=== PATIENT | female | born 1985 | race Caucasian/White ===

== ENCOUNTER 2021-11-11 08:12 | Emergency (ER) | payer BC, SELFPAY ==
--- NOTE | 2021-11-11 08:17 | ED_ITS ---
HPI - Back Pain/Injury General: Chief Complaint: Urogenital-Female Stated Complaint: low back pain Time Seen by Provider: 11/11/21 08:17 Source: patient Mode of arrival: ambulatory History of Present Illness: 36-year-old female complaining of left flank pain radiating down to the groin worse with urination. she not previously had this before no vomiting or diarrhea began yesterday with what felt like a low-grade fever that seems to have resolved. When she first arrived she has severe flank pain after she returns from CT is mostly resolved resolved on the left side. No known history of nephrolithiasis but states several family members have it. MD elicited complaint: back pain Onset (ago): day(s) (1) Timing: intermittent Severity: moderate Similar Symptoms Previously: No Quality: sharp Location: left flank Radiation: groin Exacerbating factors: other (Urination) Relieving factors: none Associated symptoms: Deny abdominal pain, arthralgias, chills, change in bowel habits, difficulty walking, dysuria, fatigue, fecal incontinence, fever(s), hematuria, myalgias, nausea, numbness, syncope, tingling/numbness/burning, urinary frequency, urinary urgency, vomiting or weakness Review of Systems Const: Denies: fever(s), chills, fatigue or malaise ENMT: Denies: throat pain, ear or mastoid pain, nasal discharge or nasal congestion Card: Denies: syncope Resp: Denies: dyspnea, productive cough or non-productive cough GI: Denies: abdominal pain, nausea, vomiting, fecal incontinence or change in bowel habits : Reports: flank pain and difficulty voiding; Denies: dysuria, urinary frequency, urinary urgency or hematuria Musc: Reports: back pain Skin/Breast: Denies: rash or pruritus Neuro: Denies: difficulty walking PFSH ED PFSH: Surgical History (Updated 11/11/21 @ 12:45 by Naresh Celis DO) H/O: hysterectomy Social History (Updated 11/11/21 @ 12:45 by Naresh Celis DO) Smoking and tobacco status: never smoked Alcohol intake: current Physical Exam Const: COMMON NORMALS: no acute distress GENERAL APPEARANCE: cooperative and comfortable ORIENTATION/CONSCIOUSNESS: Yes awake, Yes oriented to person, Yes oriented to place and Yes oriented to time HENMT: COMMON NORMALS: normocephalic and atraumatic HEAD & SCALP: normocephalic and atraumatic Resp: COMMON NORMALS: normal respiratory effort, No retractions, No use of accessory muscles and clear to auscultation bilaterally AUSCULTATION: clear to auscultation bilaterally Cardio: COMMON NORMALS: regular rate, regular rhythm and No murmurs present (Cardio) RATE: regular rate RHYTHM: regular rhythm GI: COMMON NORMALS: Soft to palpation and No hepatosplenomegaly present AUSCULTATION: Yes normoactive bowel sounds PALPATION: Yes Soft to palpation, No Tenderness to palpation present (GI), No Guarding due to palpation present (GI) and Yes No hepatosplenomegaly present : BLADDER/KIDNEY EXAM: Yes CVA tenderness Back/Pelvis: GENERAL BACK: Yes CVA tenderness CVA tenderness: left Extremity: COMMON NORMALS: normal to inspection, capillary refill normal, no clubbing, cyanosis or edema, no calf tenderness and no pedal edema Neuro: SENSORIUM/ORIENTATION: Yes oriented to person, Yes oriented to place and Yes oriented to time Skin: COMMON NORMALS: no rashes or lesions noted GENERAL SKIN EXAM: no rashes or lesions noted Course Vital Signs: Vital signs: Vital Signs Temperature 97.4 F L 11/11/21 08:19 Pulse Rate 65 11/11/21 10:54 Respiratory Rate 21 H 11/11/21 10:54 Blood Pressure 120/72 11/11/21 10:54 Pulse Oximetry 99 11/11/21 10:54 Oxygen Delivery Me thod 11/11/21 09:57 MDM - Back Pain/Injury Medical Decision Making Pain relieved after returning from CT. Renal stone in the bladder with hydronephrosis and hydroureter evidence that she had just passed the stone. We will have her strain her urine and set her up to see Dr. Nelson still in quite a bit of renal colic gave her some hydrocodone to use as needed. save stone for pathology follow-up with urology. Medical Records I reviewed the patient's medical records. Labs I reviewed the patient's lab results. : 11/11/21 08:44 11/11/21 08:44 Radiology Impressions Abdomen/Pelvis CT 11/11/21 09:56 IMPRESSION: 1. Very mild left hydronephrosis and hydroureter. No obstructive stone or lesion is seen. Nonobstructive right renal stone. 2. Stone in the dependent bladder that measures 4.1 mm; this may reflect a recently passed ureteral stone. 3. Probable simple cyst in the left ovary measuring 2.5 cm. Consider ultrasound if clinically warranted. 4. The bladder wall is thickened which may reflect underdistention. Correlate with urinalysis. 5. Hepatosplenomegaly. 6. Trace bilateral pleural effusions. 7. Occasional colonic diverticula. Laboratory Results WBC 5.3 10^3/uL (4.0-10.0) 11/11/21 08:44 RBC 5.16 10^6/uL (4.1-5.3) 11/11/21 08:44 Hgb 15.0 g/dL (11.5-15.3) 11/11/21 08:44 Hct 45.8 % (37.0-47.0) 11/11/21 08:44 MCV 88.8 fl (81-99) 11/11/21 08:44 MCH 29.1 pg (28.0-34.0) 11/11/21 08:44 MCHC 32.8 g/dL (30.0-36.0) 11/11/21 08:44 RDW 12.2 % (12.1-15.1) 11/11/21 08:44 Plt Count 304 10^3/cmm (130-400) 11/11/21 08:44 MPV 10.1 fL (7.4-10.4) 11/11/21 08:44 Neut % (Auto) 53.2 % 11/11/21 08:44 Lymph % (Auto) 37.1 % 11/11/21 08:44 [place] % (Auto) 7.8 % 11/11/21 08:44 Eos % (Auto) 1.1 % 11/11/21 08:44 Baso % (Auto) 0.6 % 11/11/21 08:44 Neut # (Auto) 2.82 10^3/uL (1.8-7.7) 11/11/21 08:44 Lymph # (Auto) 2.0 10^3/uL (0.8-4.8) 11/11/21 08:44 [place] # (Auto) 0.4 10^3/uL (0.2-0.9) 11/11/21 08:44 Eos # (Auto) 0.1 10^3/uL (0.0-0.8) 11/11/21 08:44 Baso # (Auto) 0.0 10^3/uL (0.0-0.1) 11/11/21 08:44 Nucleated RBC % (auto) 0 % 11/11/21 08:44 Nucleated RBCs # 0.0 /100WBC 11/11/21 08:44 Sodium 142 mmol/L (136-145) 11/11/21 08:44 Potassium 3.7 mmol/L (3.5-5.1) 11/11/21 08:44 Chloride 108 mmol/L (98-107) H 11/11/21 08:44 Carbon Dioxide 24 mmol/L (22-29) 11/11/21 08:44 Anion Gap 13.7 (5-19) 11/11/21 08:44 BUN 8 mg/dL (6-20) 11/11/21 08:44 Creatinine 0.9 mg/dL (0.5-0.9) 11/11/21 08:44 GFR Calculation 70.8 mL/min (90-130) L 11/11/21 08:44 Glucose 96 mg/dL (65-115) 11/11/21 08:44 Calculated Osmolality 292 mOsm/kg (285-295) 11/11/21 08:44 Calcium 8.9 mg/dL (8.5-10.5) 11/11/21 08:44 Urine Color Yellow (Yellow) 11/11/21 08:30 Urine Appearance Clear (CLEAR) 11/11/21 08:30 Urine pH 5 (5-7) 11/11/21 08:30 Ur Specific [place] 1.030 (1.005-1.030) 11/11/21 08:30 Urine Protein Neg (Negative) 11/11/21 08:30 Urine Glucose (UA) Norm (Normal) 11/11/21 08:30 Urine Ketones Negative (Negative) 11/11/21 08:30 Urine Blood 2+ (Negative) H 11/11/21 08:30 Urine Nitrate Negative (Negative) 11/11/21 08:30 Urine Bilirubin Neg (Negative) 11/11/21 08:30 Urine Urobilinogen Norm mg/dL (Negative) 11/11/21 08:30 Ur Leukocyte Esterase Negative (Negative) 11/11/21 08:30 Urine RBC 0-4 /hpf (0-2) H 11/11/21 08:30 Urine WBC None /hpf (0-5) 11/11/21 08:30 Ur Squamous Epith Cells 10-15 /hpf (0-5) H 11/11/21 08:30 Amorphous Sediment Not Reportable 11/11/21 08:30 Urine Bacteria 2+ /hpf (NONE) H 11/11/21 08:30 Discharge Plan Discharge Patient Disposition: Home Clinical Impression: Left nephrolithiasis Condition: Stable Prescriptions: New hydrocodone-acetaminophen 5-325 mg tablet 1 tab PO Q6H PRN (Reason: pain) Qty: 10 0RF Discharge Orders: Discharge ED (Routine); Ordered 11/11/21 Ordered By: Naresh Celis Discharge Diet: Usual diet Discharge Activity: Resume usual activity Patient Instructions: Opioid Safety Activity Restrictions/Additional Instructions: Strain urine to collect stone to submit for pathology. Case management will make arrangements for you to follow-up with urology and help you establish with PCP. Coding Level of Care Code ED Tele [employer]out [employer] Line Repairer for Seun Kemp
[2021-11-11 08:19] VITALS: BP 114/78; PULSE 84; RESP 18; TEMP 36.3; O2SAT 99; BMI 31.3
[2021-11-11] MEDS: sodium chloride 0.9% 1,000 ML 999 ML IV (08:40)
[2021-11-11 08:41] VITALS: RESP 12
[2021-11-11] MEDS: ondansetron 2 mg/ML SDV 2 mL 4 MG IVP (08:41)
[2021-11-11] MEDS: morphine 4 mg/mL SDV 1 mL IVP (08:41)
[2021-11-11 08:54] LABS: Bilirubin Urine Neg (Negative); Blood Urine 2+ (Negative); Glucose Urine UA Norm (Normal); Ketones Urine Negative (Negative); Nitrate Urine Negative (Negative); Protein Urine Neg (Negative); Urine Appearance Clear (CLEAR); Urine Color Yellow (Yellow); pH Urine 5 (5-7)
[2021-11-11 08:55] LABS: Add Urine Culture? No; Add Urine Microscopic? YES; Bacteria Urine 2+ /hpf; Leukocyte Esterase Urine Negative (Negative); RBC Urine 0-4 /hpf (0-2); Urobilinogen Urine Norm (Negative)
[2021-11-11 09:03] LABS: Basophils % 0.6 %; Eosinophils # 0.1 10^3/uL (0.0-0.8); Eosinophils % 1.1 %; Hematocrit 45.8 % (37.0-47.0); Lymphocytes % 37.1 %; Mean Corpuscular HGB Conc 32.8 g/dL (30.0-36.0); Mean Corpuscular Hemoglobin 29.1 pg (28.0-34.0); Mean Corpuscular Volume 88.8 fl (81-99); Mean Platelet Volume 10.1 fL (7.4-10.4); Monocytes # 0.4 10^3/uL (0.2-0.9); Monocytes % 7.8 %; Neutrophils # 2.82 10^3/uL (1.8-7.7); Neutrophils % 53.2 %; Nucleated Red Blood Cells % 0 %; Platelet Count 304 10^3/cmm (130-400); Red Blood Count 5.16 10^6/uL (4.1-5.3); Red Cell Distribution Width 12.2 % (12.1-15.1); White Blood Count 5.3 10^3/uL (4.0-10.0)
[2021-11-11 09:23] LABS: Anion Gap 13.7 (5-19); Blood Urea Nitrogen 8 mg/dL (6-20); Calcium 8.9 mg/dL (8.5-10.5); Carbon Dioxide 24 mmol/L (22-29); Chloride 108 mmol/L (98-107); Glomerular Filtration Rate 70.8 mL/min (90-130); Glucose 96 mg/dL (65-115); Osmolality Calculated 292 mOsm/kg (285-295); Potassium 3.7 mmol/L (3.5-5.1); Sodium 142 mmol/L (136-145)
--- NOTE | 2021-11-11 09:56 | CTR_ITS ---
PROCEDURE INFORMATION: Exam: CT Abdomen And Pelvis Without Contrast Exam date and time: 11/11/2021 10:04 AM Age: 36 years old Clinical indication: Left flank abdominal pain. Prior appendectomy and partial hysterectomy. TECHNIQUE: Imaging protocol: Computed tomography of the abdomen and pelvis without contrast. Radiation optimization: All CT scans at this facility use at least one of these dose optimization techniques: automated exposure control; mA and/or kV adjustment per patient size (includes targeted exams where dose is matched to clinical indication); or iterative reconstruction. COMPARISON: No relevant prior studies available. RADIATION DOSE METRICS: Total DLP (mGy-cm): 1005.63 FINDINGS: Pleural spaces: Trace bilateral pleural effusions. Trace pericardial fluid. No hiatal hernia. Liver: The liver is enlarged measuring 20.9 cm. Gallbladder and bile ducts: The gallbladder is unremarkable. Pancreas: The pancreas is unremarkable. Spleen: The spleen is mildly enlarged measuring 13.4 cm. Adrenal glands: The adrenal glands are unremarkable. Kidneys and ureters: Very mild left hydronephrosis and hydroureter. No obstructive stone or lesion is seen. Nonobstructive right renal stone. There is a stone in the bladder that measures 4.1 mm; this may reflect a recently passed ureteral stone. Stomach and bowel: The stomach and small bowel are unremarkable. Mild prominence of the wall of the ascending colon likely reflects underdistention. Occasional colonic diverticula without evidence of acute diverticulitis. Appendix: The appendix has been removed. Intraperitoneal space: No free intraperitoneal air is seen. Vasculature: No abdominal aortic aneurysm. Lymph nodes: No retroperitoneal lymphadenopathy. Urinary bladder: The bladder wall is thickened which may reflect underdistention. Correlate with urinalysis. Reproductive: Prior hysterectomy. Probable simple cyst in the left ovary measuring 2.5 cm. Bones/joints: No acute fracture is seen. Soft tissues: Small fat containing umbilical hernia. CT/CT kidney stone [id number] IMPRESSION: 1. Very mild left hydronephrosis and hydroureter. No obstructive stone or lesion is seen. Nonobstructive right renal stone. 2. Stone in the dependent bladder that measures 4.1 mm; this may reflect a recently passed ureteral stone. 3. Probable simple cyst in the left ovary measuring 2.5 cm. Consider ultrasound if clinically warranted. 4. The bladder wall is thickened which may reflect underdistention. Correlate with urinalysis. 5. Hepatosplenomegaly. 6. Trace bilateral pleural effusions. 7. Occasional colonic diverticula.
[2021-11-11 09:57] VITALS: BP 107/69; PULSE 87; RESP 14; O2SAT 98
[2021-11-11 10:54] VITALS: BP 120/72; PULSE 65; RESP 21; O2SAT 99
--- NOTE | 2021-11-13 11:51 | DCPLANNER ---
Addendum entered by Mellisa Oh 11/15/21 08:42: Patient had a follow up appointment scheduled for 11.15.21 with Lizett Dela Cruz at urology - patient did attend appointment. Original Note: radiology manager had message to schedule a follow up appointment for patient with urology. radiology manager sent patients information to the front office staff at urology. Patients information will be printed and reviewed. Clinic will call patient with appointment information.
== END 2021-11-11 11:06 | disposition home or self-care (01) ==
PROVIDERS: Emergency Provider Family Medicine
DX: N20.0 Calculus of kidney (principal)
CPT/HCPCS: 74176; 80048; 81001; 85025; 96361; 96374; 96375; 99285; J2270; J2405; J7030

== ENCOUNTER 2021-11-15 08:12 | Outpatient (CLI) | payer BC, SELFPAY ==
--- NOTE | 2021-11-15 08:20 | XR_ITS ---
WS: [id number] KUB, AP view, 11/15/2021 Clinical Data: Left Nephrolithiasis Comparison: None. Findings: No abnormal intraabdominal masses or calcifications are seen. There is no dilatated small bowel or ev idence of obstruction. Fecal material partly obscures both kidneys. XR/XR KUB [id number] Impression: Negative KUB.
== END 2021-11-15 08:13 | disposition home or self-care (01) ==
LOC: RAD 08:15
PROVIDERS: Visit Provider Nurse Practitioner Family
DX: N20.0 Calculus of kidney (principal)
CPT/HCPCS: 74018; 87086

== ENCOUNTER 2021-11-21 07:58 | Outpatient (CLI) | payer BC, SELFPAY ==
--- NOTE | 2021-11-21 08:26 | XR_ITS ---
WS: [id number] KUB, AP view, 11/21/2021 Clinical Data: STONES Comparison: KUB, 11/15/2021 Findings: No abnormal intraabdominal masses or calcifications are seen. There is no dilatated small bowel or ev idence of obstruction. Fecal material obscures detail over both kidneys. No calcifications are seen in the true pelvis. XR/XR KUB [id number] Impression: Negative KUB.
== END 2021-11-21 07:59 | disposition home or self-care (01) ==
PROVIDERS: Visit Provider Urology
DX: N20.1 Calculus of ureter (principal)
CPT/HCPCS: 74018

== ENCOUNTER → 2021-11-27 10:01 | Outpatient (BNVA) | payer BC, SELFPAY | PROVIDERS: Visit Provider Urology | DX: N20.1 Calculus of ureter (principal); N20.0 Calculus of kidney | CPT/HCPCS: 81003 ==

== ENCOUNTER → 2021-11-30 12:30 | Outpatient (BNVA) | payer BC, SELFPAY | PROVIDERS: Visit Provider Nurse Practitioner Family | DX: N20.0 Calculus of kidney (principal); N20.1 Calculus of ureter; R39.15 Urgency of urination | CPT/HCPCS: 81003 ==

== ENCOUNTER → 2021-12-12 12:46 | Outpatient (BNVA) | payer BC, SELFPAY | PROVIDERS: Visit Provider Urology | DX: N20.1 Calculus of ureter (principal) | CPT/HCPCS: 81003; 82365; 88300 ==

== ENCOUNTER 2022-04-26 08:06 | Emergency (ER) | payer BC, MEDICAID, SELFPAY ==
[2022-04-26] VITALS (7 sets, daily range): BP systolic 114–137; BP diastolic 76–88; PULSE 61–83; RESP 14–16; TEMP 36.8; O2SAT 95–100; BMI 35.4
--- NOTE | 2022-04-26 08:38 | XR_ITS ---
WS: [id number] Exam: XR KUB [id number] Date/Time of Exam: 04/26/2022 8:42 AM Reason For Exam: RLQ abd pain No bowel obstruction or free air. No sign of organ enlargement. Bony structures are intact. XR/XR KUB [id number] IMPRESSION: 1. No acute abdominal process.
[2022-04-26 09:00] LABS: Basophils % 0.3 %; Eosinophils % 0.4 %; Hematocrit 47.1 % (37.0-47.0); Hemoglobin 15.4 g/dL (11.5-15.3); Lymphocytes # 2.4 10^3/uL (0.8-4.8); Lymphocytes % 33.7 %; Mean Corpuscular HGB Conc 32.7 g/dL (30.0-36.0); Mean Corpuscular Hemoglobin 28.5 pg (28.0-34.0); Mean Corpuscular Volume 87.2 fl (81-99); Mean Platelet Volume 10.1 fL (7.4-10.4); Monocytes # 0.5 10^3/uL (0.2-0.9); Monocytes % 6.7 %; Neutrophils # 4.22 10^3/uL (1.8-7.7); Neutrophils % 58.8 %; Nucleated Red Blood Cells % 0 %; Platelet Count 270 10^3/cmm (130-400); Red Cell Distribution Width 12.4 % (12.1-15.1); White Blood Count 7.2 10^3/uL (4.0-10.0)
[2022-04-26 09:14] LABS: Alanine Aminotransferase 14 U/L (0-33); Albumin Level 4.2 g/dL (3.5-5.2); Alkaline Phosphatase 103 U/L (35-105); Aspartate Amino Transferase 15 U/L (0-32); Blood Urea Nitrogen 9 mg/dL (6-20); Calcium 9.1 mg/dL (8.5-10.5); Carbon Dioxide 23 mmol/L (22-29); Chloride 102 mmol/L (98-107); Globulin 2.6 g/dL (1.3-4.6); Glomerular Filtration Rate 94.7 mL/min (90-130); Glucose 98 mg/dL (65-115); Lipase 19 U/L (13-60); Osmolality Calculated 283 mOsm/kg (285-295); Sodium 137 mmol/L (136-145); Total Bilirubin 0.9 mg/dL (0.15-1.2); Total Protein 6.8 g/dL (6.6-8.7)
--- NOTE | 2022-04-26 09:24 | US_ITS ---
WS: [id number] TRANSABDOMINAL PELVIC AND TRANSVAGINAL PELVIC ULTRASOUND HISTORY: RLQ abdominal pain COMPARISON: None available. Absent uterus. There is no midline mass or fluid collection. Right ovary: 3.7 cm x 2.4 cm x 4.0 cm. Normal size ovary. Hyperechoic nodule within the RIGHT ovary m easures 2.1 x 2.1 x 2.1 cm. No increased vascularity. Most consistent with a hemorrhagic corpus luteu m or follicle. No solid mass. Left ovary: 4.1 cm x 3.9 cm x 2.8 cm. Normal size ovary. There is a minimally complex follicle within the ovary measuring 2.6 x 2.5 x 2.3 cm. Normal vascularity of the ovary. Free fluid: No free fluid. Ultrasound is directed to the area of pain which is in the RIGHT lower quadrant. There is a large silvia unt shadowing and bowel gas. No mass identified by ultrasound. US/US pelvis lmt w transvag IMPRESSION: 1. Status post hysterectomy. 2. No ovarian cysts or solid mass. 3. Small hemorrhagic follicle or corpus luteum RIGHT ovary and a follicle LEFT ovary.
[2022-04-26 11:12] LABS: Add Urine Microscopic? NO; Charge for UA Resulting for Rev
[2022-04-26 11:26] LABS: Bilirubin Urine Neg (Negative); Blood Urine Neg (Negative); Glucose Urine UA Norm (Normal); Ketones Urine 1+ (Negative); Leukocyte Esterase Urine Negative (Negative); Nitrate Urine Negative (Negative); Protein Urine Neg (Negative); Sulfosalicylic Acid Urine Negative (Negative); Urine Appearance Clear (CLEAR); Urine Color Yellow (Yellow); Urobilinogen Urine Neg (Negative); pH Urine 8 (5-7)
[2022-04-26] MEDS: sodium chloride 0.9% 1,000 ML 999 ML IV (11:34)
--- NOTE | 2022-04-26 12:28 | ED_ITS ---
HPI - Abdominal Pain General: Chief Complaint: Abdominal Pain Stated Complaint: fever for 3 weeks, abd pain Time Seen by Provider: 04/26/22 08:13 History of Present Illness: Patient is in today for right lower quadrant abdominal pain. She reports that this pain is really been ongoing for approximately 3 weeks. She states that she has been to her other provider who diagnosed her with IBS and started her on antibiotic. She states that she has been off of the antibiotic for approximately 1 week. She reports that her pain is no better and if anything is more constant. She states that she has not had any injury to her abdomen. She has noticed fever off and on at home even up to 102 ?F. She has had nausea and she has had intermittent diarrhea. She states that yesterday she had diarrhea stools for approximately 2-1/2 hours in which she did not leave the toilet. Patient is eating and drinking. She does have a history of an appendectomy and also a partial hysterectomy in which she still has both ovaries remaining. She also reports a history of ovarian cyst. Associated Symptoms: Reports chills, diarrhea, fever(s) and nausea; Denies dysuria and vomiting Review of Systems Const: Reports: fever(s) and chills Card: Denies: chest pain or palpitations Resp: Denies: dyspnea, productive cough or non-productive cough GI: Reports: abdominal pain, nausea and diarrhea; Denies: vomiting : Denies: flank pain, difficulty voiding, dysuria, urinary frequency, urinary urgency or urinary hesitancy PFSH ED PFSH: Medical History Colitis Hemorrhoids History of blood clots History of endometriosis IBS (irritable bowel syndrome) Surgical History H/O: hysterectomy History of abdominal surgery History of appendectomy History of 3 History of wisdom tooth extraction Family History Mother History of benign breast tumor Hypertension Acute rheumatoid arthritis Father Diabetes Hypertension High cholesterol Social History Smoking and tobacco status: never smoked Alcohol intake: current Alcohol intake frequency: holidays/special occasions only Adopted: No Lives independently: Yes Household members: spouse and children Marital status: Current occupational status: unemployed Female Reproductive History: Para: 3 Spontaneous abortions: No Physical Exam Const: COMMON NORMALS: patient oriented x3 and alert OTHER: Patient is in obvious pain Neck/C-Spine: COMMON NORMALS: no JVD Resp: COMMON NORMALS: normal respiratory effort, No use of accessory muscles and clear to auscultation bilaterally AUSCULTATION: clear to auscultation b ilaterally Cardio: COMMON NORMALS: no JVD, regular rate, regular rhythm, S1 normal heart sound present, S2 normal heart sound present and No murmurs present (Cardio) RATE: regular rate RHYTHM: regular rhythm HEART SOUNDS: S1 normal heart sound present and S2 normal heart sound present GI: COMMON NORMALS: Normal to inspection, nondistended, normoactive bowel sounds present and Soft to palpation PALPATION: Yes Soft to palpation, Yes Tenderness to palpation present (GI) Details: RLQ and Yes Guarding due to palpation present (GI) in the RLQ : COMMON NORMALS: Yes no CVA tenderness, Yes normal appearance of the vagina and Yes no masses BLADDER/KIDNEY EXAM: Yes no CVA tenderness BIMANUAL EXAM - ADNEXA, OTHER: Yes tender on the right Back/Pelvis: COMMON NORMALS: no CVA tenderness Neuro: COMMON NORMALS: patient oriented x3 SENSORIUM/ORIENTATION: Yes alert Course Vital Signs: Vital signs: Vital Signs Temperature 98.2 F 04/26/22 08:17 Pulse Rate 61 04/26/22 12:47 Respiratory Rate 14 04/26/22 12:47 Blood Pressure 114/76 04/26/22 12:47 Pulse Oximetry 99 04/26/22 12:47 Oxygen Delivery Me thod 04/26/22 08:17 MDM - Abdominal Pain Medical Decision Making Patient is in today for ongoing abdominal pain right lower quadrant. Patient has a history of an appendectomy and also partial hysterectomy. She also relates a history of ovarian cyst. Patient's physical exam is benign with the exception of significant right lower quadrant abdominal pain on palpation. Abdomen is soft, but tender right lower quadrant. There is some tenderness appreciated on bimanual vaginal exam on the right side ovary. White blood cell count is normal. Patient does have ketones in urine but no other indication of infection. Normal saline IV boluses given x1. Ultrasound pelvis limited ordered which does show small hemorrhagic follicle or corpus luteum right ovary and a follicle left ovary. Discussed results of ultrasound and labs with patient. Referral to case management to help coordinate referral to BUSINESS WRITER for the patient. Advised patient of conservative treatments at home. Follow-up with primary care provider as needed. Return to the ER for any new or worsening symptoms Lab Data 04/26/22 08:35 04/26/22 08:35 Labs/Radiology: Radiology Impressions KUB X-Ray 04/26/22 08:38 IMPRESSION: 1. No acute abdominal process. Pelvic/Transvag US 04/26/22 09:24 IMPRESSION: 1. Status post hysterectomy. 2. No ovarian cysts or solid mass. 3. Small hemorrhagic follicle or corpus luteum RIGHT ovary and a follicle LEFT ovary. Laboratory Results WBC 7.2 10^3/uL (4.0-10.0) 04/26/22 08:35 RBC 5.40 10^6/uL (4.1-5.3) H 04/26/22 08:35 Hgb 15.4 g/dL (11.5-15.3) H 04/26/22 08:35 Hct 47.1 % (37.0-47.0) H 04/26/22 08:35 MCV 87.2 fl (81-99) 04/26/22 08:35 MCH 28.5 pg (28.0-34.0) 04/26/22 08:35 MCHC 32.7 g/dL (30.0-36.0) 04/26/22 08:35 RDW 12.4 % (12.1-15.1) 04/26/22 08:35 Plt Count 270 10^3/cmm (130-400) 04/26/22 08:35 MPV 10.1 fL (7.4-10.4) 04/26/22 08:35 Neut % (Auto) 58.8 % 04/26/22 08:35 Lymph % (Auto) 33.7 % 04/26/22 08:35 [place] % (Auto) 6.7 % 04/26/22 08:35 Eos % (Auto) 0.4 % 04/26/22 08:35 Baso % (Auto) 0.3 % 04/26/22 08:35 Neut # (Auto) 4.22 10^3/uL (1.8-7.7) 04/26/22 08:35 Lymph # (Auto) 2.4 10^3/uL (0.8-4.8) 04/26/22 08:35 [place] # (Auto) 0.5 10^3/uL (0.2-0.9) 04/26/22 08:35 Eos # (Auto) 0.0 10^3/uL (0.0-0.8) 04/26/22 08:35 Baso # (Auto) 0.0 10^3/uL (0.0-0.1) 04/26/22 08:35 Nucleated RBC % (auto) 0 % 04/26/22 08:35 Nucleated RBCs # 0.0 /100WBC 04/26/22 08:35 Sodium 137 mmol/L (136-145) 04/26/22 08:35 Potassium 4.0 mmol/L (3.5-5.1) 04/26/22 08:35 Chloride 102 mmol/L (98-107) 04/26/22 08:35 Carbon Dioxide 23 mmol/L (22-29) 04/26/22 08:35 Anion Gap 16.0 (5-19) 04/26/22 08:35 BUN 9 mg/dL (6-20) 04/26/22 08:35 Creatinine 0.7 mg/dL (0.5-0.9) 04/26/22 08:35 GFR Calculation 94.7 mL/min (90-130) 04/26/22 08:35 Glucose 98 mg/dL (65-115) 04/26/22 08:35 Calculated Osmolality 283 mOsm/kg (285-295) L 04/26/22 08:35 Calcium 9.1 mg/dL (8.5-10.5) 04/26/22 08:35 Total Bilirubin 0.9 mg/dL (0.15-1.2) 04/26/22 08:35 AST 15 U/L (0-32) 04/26/22 08:35 ALT 14 U/L (0-33) 04/26/22 08:35 Alkaline Phosphatase 103 U/L (35-105) 04/26/22 08:35 Total Protein 6.8 g/dL (6.6-8.7) 04/26/22 08:35 Albumin 4.2 g/dL (3.5-5.2) 04/26/22 08:35 Globulin 2.6 g/dL (1.3-4.6) 04/26/22 08:35 Lipase 19 U/L (13-60) 04/26/22 08:35 Urine Color Yellow (Yellow) 04/26/22 11:03 Urine Appearance Clear (CLEAR) 04/26/22 11:03 Urine pH 8 (5-7) H 04/26/22 11:03 Ur Specific [place] 1.010 (1.005-1.030) 04/26/22 11:03 Urine Protein Neg (Negative) 04/26/22 11:03 Urine Glucose (UA) Norm (Normal) 04/26/22 11:03 Urine Ketones 1+ (Negative) H 04/26/22 11:03 Urine Blood Neg (Negative) 04/26/22 11:03 Urine Nitrate Negative (Negative) 04/26/22 11:03 Urine Bilirubin Neg (Negative) 04/26/22 11:03 Prot Sulfosalicylic Acd Negative (Negative) 04/26/22 11:03 Urine Urobilinogen Neg mg/dL (Negative) 04/26/22 11:03 Ur Leukocyte Esterase Negative (Negative) 04/26/22 11:03 Discharge Plan Discharge Patient Disposition: Home Clinical Impression: Hemorrhagic cyst of right ovary, Abdominal pain, right lower quadrant Condition: Stable Prescriptions: No Action Hair,Skin and Nails Tablet 1 tab PO BEDTIME ascorbate calcium (vitamin C) 500 mg tablet 500 mg PO BEDTIME melatonin 3 mg capsule 3 mg PO BEDTIME cyanocobalamin (vitamin B-12) 1,000 mcg capsule 1,000 mcg PO BEDTIME Probiotic 3 billion cell capsule 3,000 mmu cells PO DAILY Rx Instructions: administer with a meal dicyclomine 20 mg tablet 20 mg PO TID PRN (Reason: abdominal cramping) Qty: 30 0RF calcium polycarbophil [FiberCon] 625 mg tablet 1,250 mg PO BID Qty: 60 3RF Tylenol Ex Str Rapid Release 500 mg Tablet 1,000 mg PO Q6H PRN (Reason: Pain) Aleve 220 mg Tablet 220 mg PO Q12H PRN (Reason: Pain) Vitamin D3 25 mcg (1,000 unit) Tablet 25 mcg PO BEDTIME trazodone 50 mg tablet 50 mg PO BEDTIME Discharge Orders: Discharge ED (Routine); Ordered 04/26/22 Ordered By: Brenda Rodarte Referrals: Austin Azul DO [Primary Care Provider] - Discharge Diet: Usual diet Discharge Activity: Increase activity as tolerated Patient Instructions: Ovarian Cyst (ED) Activity Restrictions/Additional Instructions: Your ultrasound today showed ovarian cyst. 1 is considered hemorrhagic just meaning that it is bleeding a tiny bit. Your labs were unremarkable. I recommend conservative treatment for ovarian cyst including warm compresses and making sure that you are staying well-hydrated. Take Tylenol Motrin as needed for pain. Follow-up with BUSINESS WRITER. Return to the ER for new or worsening symptoms Coding Level of Care Code ED Bed And Breakfast Innkeeper for Seun Kemp
--- NOTE | 2022-04-27 08:52 | DCPLANNER ---
Addendum entered by Mellisa Oh 06/06/22 15:42: Patient had a follow up appointment scheduled with [facility] - patient did attend appointment Addendum entered by Mellisa Oh 05/01/22 15:12: Patient has a follow up appointment scheduled for Saturday, June 06, 2022 at 9:[address] jones at [facility]. Clinic will call patient with appointment information. Original Note: data architect manager had message to schedule a follow up appointment for patient with [facility]. data architect manager sent patients information to the front office staff at [facility]. Patients information will be printed and reviewed. Clinic will call patient with appointment information.
== END 2022-04-26 12:48 | disposition home or self-care (01) ==
PROVIDERS: Emergency Provider Nurse Practitioner Family; PCP Family Medicine
DX: N83.201 Unspecified ovarian cyst, right side (principal)
CPT/HCPCS: 74018; 76830; 76857; 80053; 81003; 83690; 85025; 96360; 99285; J7030

== ENCOUNTER → 2022-08-20 08:16 | Outpatient (BNVA) | payer MEDICAID, SELFPAY | PROVIDERS: PCP Family Medicine; Referring Provider Family Medicine; Visit Provider Specialist | DX: G43.709 Chronic migraine without aura, not intractable, without status migrainosus (principal) | CPT/HCPCS: 99204 ==

== ENCOUNTER 2022-08-28 18:08 | Observation (INO) | payer BC, MEDICAID, SELFPAY ==
[2022-08-27 09:04] VITALS: BMI 35.4
[2022-08-28] VITALS (16 sets, daily range): BP systolic 103–139; BP diastolic 66–86; PULSE 50–73; RESP 15–16; TEMP 36.4–36.9; O2SAT 88–99
[2022-08-28] MEDS: scopolamine 1.5 Patch 1 PATCH TRANSDERMA (11:12)
[2022-08-28] MEDS: CELEcoxib 200 mg Capsule 400 MG PO (11:13)
[2022-08-28] MEDS: phenazopyridine 100 mg Tablet 200 MG PO ×2 (11:13→21:32)
[2022-08-28] MEDS: gabapentin 300 mg Capsule PO (11:13)
[2022-08-28] MEDS: acetaminophen 1,000 MG/100 ML PIGGYBACK 400 MG IV (11:18)
[2022-08-28] MEDS: sodium chloride 0.9% 1,000 ML 30 ML IV (11:30)
--- NOTE | 2022-08-28 13:39 | ANES.PREANE2 ---
Pre-Anesthetic Assessment Height/Weight: Height 1.75 m Weight 108.862 kg Temp Pulse Resp BP Pulse Ox O2 Del Method 97.7 F 71 16 116/80 99 Room Air 08/28/22 11:00 08/28/22 11:00 08/28/22 11:00 08/28/22 11:00 08/28/22 11:00 08/28/22 11:00 Preop Diagnosis: endometriosis, pelvic pain, previous Operation Date: 08/28/22 12:35 Proposed Procedures p Laparoscopic right salpingo-oophorectomy, left salpingectomy [id number], 67194,R10.31,Z87.42(Right) - Arlette Staton MD s Salpingectomy(Left) - Arlette Staton MD s Mini Laparotomy(Not Applicable) - Arlette Staton MD Familial anesthetic complications: None Was Beta Savita taken within 24 hours: N/A Was Clonidine taken within 24 hours: N/A Last intake: Intake Last Liquid Date 08/27/22 Last Liquid Time 23:00 Last Solid Date 08/27/22 Last Solid Time 22:30 Social No alcohol and No tobacco Exam alert, oriented x 3, clear to auscultation bilaterally and regular rate & rhythm Airway Mallampati: Class III Dentition: full GI IBS Anesthetic Plan ASA status: 2 Anesthesia: General Risk of > 500 ml blood loss (7ml/kg in children): No Medications/Allergies Home Medications Medication Instructions Recorded Confirmed Last Taken Type cyanocobalamin (vitamin B-12) 1,000 mcg PO BEDTIME 11/15/21 08/28/22 08/26/22 History 1,000 mcg capsule lactobacillus combination no.4 3 3,000 mmu cells PO DAILY 11/15/21 08/28/22 08/26/22 History billion cell capsule (Probiotic) melatonin 3 mg capsule 3 mg PO BEDTIME 11/15/21 08/28/22 08/26/22 History multivitamin with minerals 1 tab PO BEDTIME 11/15/21 08/28/22 08/26/22 History (Hair,Skin and Nails tablet) calcium polycarbophil 625 mg 1,250 mg PO BID 04/16/22 08/28/22 2 Weeks Ago Rx tablet (FiberCon) constipation/diarrhea #60 tabs ~08/14/22 cholecalciferol (vitamin D3) 25 25 mcg PO BEDTIME 04/26/22 08/28/22 08/27/22 History mcg (1,000 unit) tablet (Vitamin D3) onabotulinumtoxinA 100 unit 155 unit IM Q90D 90 days #2 ea 08/20/22 08/28/22 Unknown Rx solution for injection (Botox) Allergies Allergy/AdvReac Type Severity Reaction Status Date / Time latex Allergy ALGY-Rash Verified 08/28/22 11:00 Current Medications Generic Name Dose Route Start Last Admin Trade Name Freq PRN Reason Stop Dose Admin Sodium Chloride 1,000 mls @ 30 mls/hr 08/28/22 10:45 08/28/22 11:30 Sodium Chloride 0.9% IV 08/29/22 10:44 30 mls/hr .Q24H OLIVIA Administration PFSH Anesthesia Medical History Colitis Hemorrhoids History of blood clots History of endometriosis IBS (irritable bowel syndrome) Surgical History H/O: hysterectomy History of abdominal surgery History of appendectomy History of 3 History of wisdom tooth extraction Family History Mother Hypertension Father Diabetes Hypertension Hypercholesteremia Denies family history of Colon cancer Ovarian cancer Heart disease Breast cancer Uterine cancer Thyroid disease Stroke Female Reproductive History Para: 3 Spontaneous abortions: No Data Anesthesia Cardiac Studies: No Data to Display
--- NOTE | 2022-08-28 14:29 | W.PM.OPSUD ---
Surgery/Procedure H&P Update DATE OF PROCEDURE: August 28, 2022 DATE H&P PERFORMED: 08/23/22 H&P UPDATE INFORMATION: I have reviewed H&P completed within last 30 days, I have examined patient prior to procedure and No changes to prior documentation PREOP DIAGNOSIS: endometriosis, pelvic pain, previous PLANNED PROCEDURE: Operation Date: 08/28/22 12:35 Proposed Procedures p Laparoscopic right salpingo-oophorectomy, left salpingectomy [id number], 72660,R10.31,Z87.42(Right) - Arlette Staton MD s Salpingectomy(Left) - Arlette Staton MD s Mini Laparotomy(Not Applicable) - Arlette Staton MD Related Problem List Diagnoses (1) Endometriosis: (2) Pelvic pain:
[2022-08-28] MEDS: ceFAZolin 2,000 MG in sodium chloride 0.9% (plus) 50 ML 100 MG IV ×2 (15:09→20:17)
--- NOTE | 2022-08-28 16:47 | PM.OP ---
Operative Report Date of procedure: August 28, 2022 Pre-op diagnosis: Preop Diagnosis endometriosis, pelvic pain, previous Post-op diagnosis: other (Enlarged right ovary with multiple cysts. ) Post-op findings: same. No left tube or ovary was able to be palpated or seen. No right fallopian tube. Procedure done: Right oophorectomy, previous scar revision Specimens removed/disposition: right ovary and skin revision to pathology Surgeon: Arlette Staton Anesthesia: General Estimated blood loss (mL): 5 IV fluids (mL): 1,000 Urine output (mL): 50 Complications: none Condition: stable Disposition: PACU Procedure: The patient was taken to the operating room where general anesthesia was administered and found to be adequate. She was prepped and draped in the normal sterile fashion in the dorsal supine position. A strickland catheter was placed. A Pfannenstiel skin incision was made around the previous incisions and the skin was removed. It was sent to pathology. The incision was then carried down to the underlying layer of fascia. The fascia was nicked in the midline and extended laterally with the Villarreal scissors. The fascia was then tented up and the rectus muscles dissected off sharply. The rectus muscles were in the midline and the abdomen entered bluntly with the digit. This peritoneal incision was extended superiorly and inferiorly with good visualization of the bladder. The O'Toni-O'Lei retractor was placed and the bowel packed away. The right ovary was grasped with a [place] clamp and elevated. I had previously consented the patient for a bilateral salpingectomy, however when I elevated the ovary there was no tube present. Using a Gill clamp the infundibulopelvic ligament was clamped just inferior to the ovary. Using Villarreal scissors it was removed and a Mitchel stitch was placed. There was excellent hemostasis post removal of the ovary. Attention was then turned to the left ovary I was unable to find it I palpated and I looked and I could not find the ovary. Since her right ovary did not have a tube present and I could not find the left ovary, I stopped looking, assuming that the left fallopian tube had previously been removed during the hysterectomy. The O'Toni-O'Lei retractor as well as the packing was removed. The peritoneum was closed with 3-0 Monocryl in a running fashion. The fascia was closed with 0 Vicryl in a running fashion with 2 separate sutures overlapping in the midline. The skin was closed with O-Vicryl in subcuticular stitch. 10 ml of 1/2 percent bupivicaine was injected around the incision. The patient tolerated the procedure well. Sponge lap and needle counts were correct x2. She was taken to the recovery room in stable condition.
[2022-08-28] MEDS: fentaNYL 50 mcg/mL INJ 2mL IVP ×4 (16:55→23:46)
--- NOTE | 2022-08-28 17:05 | PM.DCS ---
Discharge Providers Date of Admission: 08/28/22 Date of Discharge: August 29, 2022 Attending Provider at Admission: Dr. jones Attending Provider at Discharge: Arlette Jones MD Primary Care Provider: Austin Azul DO Diagnoses at Discharge Discharge Diagnosis (1) Endometriosis: Status: Acute (2) Pelvic pain: Status: Acute Reason for Visit Reason for Visit: [id number] R10.31 Z87.42 Hospital Course Hospital Course The patient was admitted for surgery. She had pain control problems postoperatively. She was admitted for observation and pain management. By the next morning, she was doing well and pain was well controlled. She was ready for discharge. Physical Exam Narrative: The patient is doing much better this morning. She is having gas pain, but doing well. Const: COMMON NORMALS: no acute distress, patient oriented x3, no limitations, alert and well nourished GENERAL APPEARANCE: cooperative, comfortable, well kempt and well developed ORIENTATION/CONSCIOUSNESS: Yes awake, Yes oriented to person, Yes oriented to place and Yes oriented to time Resp: COMMON NORMALS: normal respiratory effort EFFORT & INSPECTION: Yes able to speak in complete sentences GI: COMMON NORMALS: Soft to palpation and non-tender PALPATION: Yes Soft to palpation Extremity: COMMON NORMALS: no calf tenderness Neuro: COMMON NORMALS: patient oriented x3 SENSORIUM/ORIENTATION: Yes alert, Yes oriented to person, Yes oriented to place and Yes oriented to time Psych: APPEARANCE: Yes well kempt Urinary Catheter Management: [place]: Cath Placed During This Visit: yes, but has since been removed by the nurse Urinary Catheter Date of Insertion: 08/28/22 Urinary Catheter Time of Insertion: 15:00 Date Urinary Catheter Removed: 08/28/22 Time Urinary Catheter Discontinued: 16:48 Discharge Data Studies Completed and Pending Pending at discharge Category Date Time Status Urine Culture Routine Lab 08/28/22 15:15 Received Vitals Last Vital Signs Temp 97.6 F 08/28/22 16:50 Pulse 56 L 08/28/22 16:55 Resp 16 08/28/22 16:55 BP 139/84 08/28/22 16:55 Pulse Ox 97 08/28/22 16:55 O2 Del Method Simple Mask 08/28/22 16:55 O2 Flow Rate 6 08/28/22 16:55 Discharge Plan Discharge Patient Disposition: Home Condition: Stable Prescriptions: New ibuprofen 800 mg tablet 800 mg PO Q8H Qty: 30 0RF Colace 100 mg capsule 100 mg PO BID Qty: 60 0RF oxycodone-acetaminophen 5-325 mg tablet 1 tab PO Q4H PRN (Reason: pain) Qty: 30 0RF Continued Botox 100 unit recon soln 155 unit IM Q90D 90 Days Qty: 2 0RF Hair,Skin and Nails Tablet 1 tab PO BEDTIME melatonin 3 mg capsule 3 mg PO BEDTIME cyanocobalamin (vitamin B-12) 1,000 mcg capsule 1,000 mcg PO BEDTIME Probiotic 3 billion cell capsule 3,000 mmu cells PO DAILY Rx Instructions: administer with a meal calcium polycarbophil [FiberCon] 625 mg tablet 1,250 mg PO BID Qty: 60 3RF cholecalciferol (vitamin D3) [Vitamin D3] 25 mcg (1,000 unit) Tablet 25 mcg PO BEDTIME Discharge Orders: Discharge Order (Routine); Ordered 08/29/22 Ordered By: Arlette Jones Referrals: Arlette Jones MD [Physician] - 09/05/22 10:00 am (Your 1 week post op appointment with Dr. Jones is September 05 at 10:00am. ) Patient Instructions: Hydrocodone/Acetaminophen (By mouth), Salpingo-Oophorectomy (GEN), OB Abdominal Surgery - [facility], OB Discharge Report, OB Food/Drug Interaction Guide, Opioid Safety Discharge Attestations Time Spent in Discharge Care*: less than 30 min Quality Metrics Clinical Quality Measures [ No reported AMI, CVA or VTE this stay] Coding Level of Care Code Acute Code for Chg Fwd Diagnoses Endometriosis N80.9 Pelvic pain R10.2
[2022-08-28] MEDS: ondansetron 2 mg/ML SDV 2 mL 4 MG IVP ×2 (17:34→22:25)
[2022-08-28] MEDS: HYDROmorphone 1 mg/mL INJ 1 mL 0.5 MG IVP (17:39)
[2022-08-28] MEDS: ketorolac 30 mg/mL INJ IVP (18:17)
[2022-08-28] MEDS: HYDROcodone-acetaminophen 5-325 mg Tablet 2 TAB PO (18:18)
--- NOTE | 2022-08-28 19:00 | ANE.PACU2 ---
Inpatient post-anesthesia follow up: Airway intact: Yes Vital signs: Temperature 98.1 F Pulse Rate 67 Respiratory Rate 18 Blood Pressure 110/76 Pulse Oximetry 96 Oxygen Delivery Me thod Room Air Oxygen Flow Rate 1 Fraction of Inspir ed Oxygen Hydration adequate: Yes Nausea and vomiting: No Pain level: 1 Mental status: Baseline
[2022-08-28] MEDS: dextrose 5%-lactated ringers 1,000 ML 125 ML IV (20:15)
[2022-08-28] MEDS: HYDROmorphone 1 mg/mL INJ 1 mL 1.5 MG IVP (20:15)
[2022-08-28] MEDS: simethicone 80 mg Chew PO (20:16)
[2022-08-28] MEDS: oxyCODONE-APAP 5-325 mg Tablet PO (21:55)
[2022-08-29] VITALS (9 sets, daily range): BP systolic 94–110; BP diastolic 49–76; PULSE 63–67; RESP 16–18; TEMP 36.6–36.9; O2SAT 92–96
[2022-08-29] MEDS: ketorolac 30 mg/mL INJ IVP (00:20)
[2022-08-29] MEDS: sodium chloride 0.9% 500 ML 999 ML IV ×2 (01:30→02:11)
[2022-08-29] MEDS: ceFAZolin 2,000 MG in sodium chloride 0.9% (plus) 50 ML 100 MG IV (02:51)
[2022-08-29] MEDS: oxyCODONE-APAP 5-325 mg Tablet PO (04:22)
[2022-08-29 06:37] LABS: Hematocrit 36.1 % (37.0-47.0); Hemoglobin 11.8 g/dL (11.5-15.3); Mean Corpuscular HGB Conc 32.7 g/dL (30.0-36.0); Mean Corpuscular Hemoglobin 28.8 pg (28.0-34.0); Platelet Count 237 10^3/cmm (130-400); Red Cell Distribution Width 12.4 % (12.1-15.1); White Blood Count 9.8 10^3/uL (4.0-10.0)
[2022-08-29] MEDS: ibuprofen 800 mg tablet PO (09:22)
[2022-08-29] MEDS: oxyCODONE-APAP 5-325 mg Tablet 1 TAB PO ×2 (09:22→12:48)
[2022-08-29] MEDS: docusate sodium 100 mg Capsule PO (09:22)
== END 2022-08-29 13:00 | disposition home or self-care (01) ==
LOC: OBGYN 18:08
PROVIDERS: Admitting Provider Obstetrics & Gynecology; PCP Family Medicine; Visit Provider Obstetrics & Gynecology
PROC: (CPT 11406; 2022-08-28 12:35)
PROC: (CPT 58720; 2022-08-28 12:35)
DX: N80.9 Endometriosis, unspecified (principal); L90.5 Scar conditions and fibrosis of skin; N83.291 Other ovarian cyst, right side
CPT/HCPCS: 11406; 58940; 36415; 51702; 85027; 87086; 88304; 88305; 96374; 96376; G0378; J0131; J0690; J1100; J1170; J1885; J2405; J2704; J2710; J3010; J3490; J7030; J7040; J7121

== ENCOUNTER 2022-09-04 10:27 | Emergency (ER) | payer BC, MEDICAID, SELFPAY ==
[2022-09-04 10:37] VITALS: BP 119/85; PULSE 76; RESP 16; TEMP 36.9; O2SAT 98; BMI 36.1
--- NOTE | 2022-09-04 10:56 | CTR_ITS ---
PROCEDURE INFORMATION: Exam: CT Abdomen And Pelvis With Contrast Exam date and time: 09/04/2022 11:10 AM Age: 36 years old Clinical indication: Abdominal pain; Acute; Prior surgery; Surgery date: 3-7 days post-operative; Surgery type: Post op RT ooph 1 week ago; Additional info: Post surgical pain and swelling TECHNIQUE: Imaging protocol: Computed tomography of the abdomen and pelvis with contrast. Radiation optimization: All CT scans at this facility use at least one of these dose optimization techniques: automated exposure control; mA and/or kV adjustment per patient size (includes targeted exams where dose is matched to clinical indication); or iterative reconstruction. Contrast material: OMNI 350; Contrast volume: 100 ml; Contrast route: INTRAVENOUS (IV); REPORTING DATA: Count of CT and Cardiac NM exams in prior 12 months: This patient has received [address] and 0 known cardiac nuclear medicine studies in the 12 months prior to the current study. COMPARISON: CT kidney stone [id number] 11/11/2021 10:04 AM RADIATION DOSE METRICS: Total DLP (mGy-cm): 1031.33 FINDINGS: Liver: Normal. No mass. Gallbladder and bile ducts: Normal. No calcified stones. No ductal dilation. Pancreas: Normal. No ductal dilation. Spleen: Normal. No splenomegaly. Adrenal glands: Normal. No mass. Kidneys and ureters: Normal. No hydronephrosis. Stomach and bowel: Colonic diverticulosis without evidence of diverticulitis. No bowel obstruction. Moderate colonic stool burden. Appendix: Appendectomy. Intraperitoneal space: Unremarkable. No free air. No significant fluid collection. Vasculature: Left-sided IVC. Lymph nodes: Unremarkable. No enlarged lymph nodes. Urinary bladder: Unremarkable as visualized. Reproductive: Left ovarian cyst measures 3 cm. Hysterectomy and right oophorectomy. Bones/joints: Unremarkable. No acute fracture. Soft tissues: A few locules of gas in the right inguinal region and just subjacent to the ventral abdominal wall are likely postsurgical. There is some ill-defined edema within the lower ventral abdominal wall. Partially loculated fluid is seen within the subcutaneous fat overlying the lower abdominal wall measuring 1.4 x 11[address]/CT abdomen pelvis w con* [id number] IMPRESSION: 1. Partially loculated fluid is seen within the subcutaneous fat overlying the lower abdominal wall as measured above. 2. There is also a small amount of ill-defined edema within the lower ventral abdominal wall.
[2022-09-04] MEDS: sodium chloride 0.9% 1,000 ML 999 ML IV (11:02)
[2022-09-04] MEDS: morphine 4 mg/mL SDV 1 mL IVP (11:03)
[2022-09-04] MEDS: ondansetron 2 mg/ML SDV 2 mL 4 MG IVP (11:03)
[2022-09-04 11:06] LABS: Basophils % 0.3 %; Eosinophils # 0.1 10^3/uL (0.0-0.8); Eosinophils % 1.5 %; Hematocrit 44.1 % (37.0-47.0); Hemoglobin 14.7 g/dL (11.5-15.3); Lymphocytes # 2.1 10^3/uL (0.8-4.8); Lymphocytes % 30.6 %; Mean Corpuscular HGB Conc 33.3 g/dL (30.0-36.0); Mean Corpuscular Hemoglobin 28.4 pg (28.0-34.0); Mean Corpuscular Volume 85.1 fl (81-99); Mean Platelet Volume 9.4 fL (7.4-10.4); Monocytes # 0.4 10^3/uL (0.2-0.9); Monocytes % 6.4 %; Neutrophils % 60.9 %; Nucleated Red Blood Cells % 0 %; Platelet Count 316 10^3/cmm (130-400); Red Blood Count 5.18 10^6/uL (4.1-5.3); White Blood Count 6.9 10^3/uL (4.0-10.0)
[2022-09-04] MEDS: iohexol 350 mg/mL 500 mL Btl (per mL) IV (11:14)
[2022-09-04 11:25] LABS: Alanine Aminotransferase 12 U/L (0-33); Albumin Level 4.1 g/dL (3.5-5.2); Alkaline Phosphatase 111 U/L (35-105); Anion Gap 14.3 (5-19); Aspartate Amino Transferase 15 U/L (0-32); Blood Urea Nitrogen 11 mg/dL (6-20); Calcium 8.9 mg/dL (8.5-10.5); Carbon Dioxide 25 mmol/L (22-29); Chloride 103 mmol/L (98-107); Globulin 2.8 g/dL (1.3-4.6); Glomerular Filtration Rate 94.7 mL/min (90-130); Glucose 105 mg/dL (65-115); Osmolality Calculated 286 mOsm/kg (285-295); Potassium 4.3 mmol/L (3.5-5.1); Sodium 138 mmol/L (136-145); Total Bilirubin 0.5 mg/dL (0.15-1.2); Total Protein 6.9 g/dL (6.6-8.7)
[2022-09-04 11:48] VITALS: BP 105/66; PULSE 67; RESP 16; O2SAT 96
[2022-09-04 11:58] LABS: Bilirubin Urine Neg (Negative); Blood Urine Neg (Negative); Glucose Urine UA Norm (Normal); Ketones Urine Negative (Negative); Nitrate Urine Negative (Negative); Protein Urine Neg (Negative); Specific Gravity, Urine 1.005 (1.005-1.030); Urine Appearance SL Hazy (CLEAR); Urine Color Light yellow (Yellow); pH Urine 7 (5-7)
[2022-09-04 11:59] LABS: Add Urine Microscopic? YES; Leukocyte Esterase Urine Negative (Negative); Urobilinogen Urine Norm (Negative)
[2022-09-04 12:03] LABS: Add Urine Culture? No; Bacteria Urine 1+ /hpf; Mucus Urine 1+ /hpf; RBC Urine 0-4 /hpf (0-2); Squamous Epithelial Cell Urine 0-4 /hpf (0-5); WBC Urine 0-4 /hpf (0-5)
--- NOTE | 2022-09-04 12:39 | ED_ITS ---
HPI - Abdominal Pain General: Chief Complaint: Abdominal Pain Stated Complaint: post surgery, lower abd pain Time Seen by Provider: 09/04/22 10:29 History of Present Illness: 36 yo female patient presents to ER with post op incisional pain and swelling. Pt had her right ovary removed last saturday via incision. Woke up today with pain, swelling and drainage. Pt denies any fever. Pt denies any n/v/d. Associated Symptoms: Denies change in bowel habits, chills, constipation, GI cramping, diarrhea, dysuria, fever(s), hematuria, hematemesis, nausea, syncope and vomiting Review of Systems Const: Denies: fever(s), chills, body aches, change in appetite, change in weight, fatigue, malaise or diaphoresis Eyes: Denies: change in vision, blurry vision, blind spots, photophobia, eye discomfort, eye discharge, eye redness, floaters or seeing flashes ENMT: Denies: throat pain, uvular edema, enlarged tonsils, odynophagia, hoarseness, mouth pain, swelling of lips/tongue, oral sores, bleeding gums, de ntal pain, dry mouth, ear or mastoid pain, ear discharge, change in hearing, tinnitus, disequilibrium, nasal discharge, nasal congestion, post nasal drip or sinus pain Card: Denies: chest pain, palpitations, irregular heart rhythm, edema, swelling of feet/ankles, lightheadedness, syncope, pre-syncope, dyspnea on exertion, orthopnea, leg pain with exertion or acrocyanosis Resp: Denies: dyspnea, productive cough, non-productive cough, wheezing, stridor, pain on inspiration, change in phlegm color, hemoptysis or chest congestion GI: Denies: abdominal pain, nausea, vomiting, hematemesis, dysphagia, diarrhea , constipation, GI cramping, change in bowel habits or rectal pain : Denies: flank pain, difficulty voiding, dysuria, urinary frequency, urinary urgency, urinary hesitancy or hematuria Musc: Denies: neck pain, back pain, extremity pain, extremity swelling, joint pain, joint swelling, joint redness, joint warmth or deformity Skin/Breast: Denies: rash, pruritus, sores, new lesions, changes in skin color or dry skin Neuro: Denies: headache(s), numbness in extremities, weakness in extremities, sensory changes, lack of coordination, difficulty walking, frequent falls, dizziness, vertigo, confusion, behavioral changes, Slurred speech present, difficulty communicating thoughts or seizure-like activity Psych: Denies: anxiety, depression, suicidal ideation or homicidal ideation Endo: Denies: polyuria, polydipsia, tired all the time, cold intolerance, excessive sweating, flushing, hot flashes or heat intolerance Mainro/Lymph: Denies: easy bruising, easy bleeding, petechiae, purpura, enlarged lymph nodes or tender lymph nodes All/Imm: Denies: urticaria, throat swelling, tongue swelling, facial swelling, acute wheezing or itchy eyes PFSH ED PFSH: Medical History Hemorrhoids History of blood clots History of endometriosis IBS (irritable bowel syndrome) Pelvic pain Renal calculus Surgical History H/O: hysterectomy History of abdominal surgery History of appendectomy History of 3 History of wisdom tooth extraction Family History Mother Hypertension Father Diabetes Hypertension Hypercholesteremia Denies family history of Colon cancer Ovarian cancer Heart disease Breast cancer Uterine cancer Thyroid disease Stroke Female Reproductive History: Para: 3 Spontaneous abortions: No Physical Exam Const: COMMON NORMALS: no acute distress, average body habitus, patient oriented x3, no limitations, healthy appearing, alert and well nourished HENMT: THROAT: no uvular edema Neck/C-Spine: COMMON NORMALS: full ROM, no lymphadenopathy, supple, no meninge al signs, no JVD, Thyroid normal and No carotid bruits THYROID: Thyroid n ormal Chest: COMMONS NORMALS: normal inspection of the chest and normal palpation of entire chest wall Resp: COMMON NORMALS: normal respiratory effort, No retractions, No use of accessory muscles, clear to auscultation bilaterally and percussion normal AUSCULTATION: clear to auscultation bilaterally PERCUSSION: percussion normal Cardio: COMMON NORMALS: no JVD, regular rate, regular rhythm, S1 normal heart sound present, S2 normal heart sound present, No gallops present (Cardio), No clicks present (Cardio), No murmurs present (Cardio), No rub (Cardio) and Peripheral pulses 2+ throughout RATE: regular rate RHYTHM: regular rhythm HEART SOUNDS: S1 normal heart sound present and S2 normal heart sound present PERIPHERAL PULSES: Peripheral pulses 2+ throughout GI: COMMON NORMALS: Soft to palpation, non-tender, No hepatosplenomegaly present, no masses and no bruits PALPATION: Yes Soft to palpation and Yes No hepatosplenomegaly present : COMMON NORMALS: Yes no CVA tenderness and Yes normal external appearance (erythema and swelling with seroussang drainage) BLADDER/KIDNEY EXAM: Yes no CVA tenderness Back/Pelvis: COMMON NORMALS: no CVA tenderness Neuro: COMMON NORMALS: patient oriented x3, CN's II-XII intact bilaterally, moves all extremities, no focal motor deficits and no sensory deficits noted SENSORIUM/ORIENTATION: Yes alert MENINGEAL SIGNS: Yes no meningeal signs Skin: COMMON NORMALS: no rashes or lesions noted and no wounds (erythema and swelling noted to incision of the abd) GENERAL SKIN EXAM: no rashes or lesions noted Course Vital Signs: Vital signs: Vital Signs Temperature 98.4 F 09/04/22 10:37 Pulse Rate 67 09/04/22 11:48 Respiratory Rate 16 09/04/22 11:48 Blood Pressure 105/66 09/04/22 11:48 Pulse Oximetry 96 09/04/22 11:48 Oxygen Delivery Me thod Room Air 09/04/22 11:48 MDM - Abdominal Pain Medical Decision Making Patient is well appearing non toxic and in no acute distress. 36 yo female patient presents to ER with post op incisional pain and swelling. Pt had her right ovary removed last saturday via incision. Woke up today with pain, swelling and drainage. Pt denies any fever. Pt denies any n/v/d. Labs do not reveal any concerning findings. CT reveals a fluid pocket at the incision site that appears to be seroma. Pt is actively draining. Incision remains intact and well approximated with the exception of .5 cm area that is daining on right side. Dressings were changed and I will start on antibiotics at this time. Pt has follow up with GYM tomorrow. Differential Diagnosis Likely abdominal pain and small bowel obstruction Medical Records abscess, seroma, uti Lab Data 09/04/22 11:00 09/04/22 11:00 Labs/Radiology: Radiology Impressions Abdomen/Pelvis CT 09/04/22 10:56 IMPRESSION: 1. Partially loculated fluid is seen within the subcutaneous fat overlying the lower abdominal wall as measured above. 2. There is also a small amount of ill-defined edema within the lower ventral abdominal wall. Laboratory Results WBC 6.9 10^3/uL (4.0-10.0) 09/04/22 11:00 RBC 5.18 10^6/uL (4.1-5.3) 09/04/22 11:00 Hgb 14.7 g/dL (11.5-15.3) 09/04/22 11:00 Hct 44.1 % (37.0-47.0) 09/04/22 11:00 MCV 85.1 fl (81-99) 09/04/22 11:00 MCH 28.4 pg (28.0-34.0) 09/04/22 11:00 MCHC 33.3 g/dL (30.0-36.0) 09/04/22 11:00 RDW 12.0 % (12.1-15.1) L 09/04/22 11:00 Plt Count 316 10^3/cmm (130-400) 09/04/22 11:00 MPV 9.4 fL (7.4-10.4) 09/04/22 11:00 Neut % (Auto) 60.9 % 09/04/22 11:00 Lymph % (Auto) 30.6 % 09/04/22 11:00 [place] % (Auto) 6.4 % 09/04/22 11:00 Eos % (Auto) 1.5 % 09/04/22 11:00 Baso % (Auto) 0.3 % 09/04/22 11:00 Neut # (Auto) 4.20 10^3/uL (1.8-7.7) 09/04/22 11:00 Lymph # (Auto) 2.1 10^3/uL (0.8-4.8) 09/04/22 11:00 [place] # (Auto) 0.4 10^3/uL (0.2-0.9) 09/04/22 11:00 Eos # (Auto) 0.1 10^3/uL (0.0-0.8) 09/04/22 11:00 Baso # (Auto) 0.0 10^3/uL (0.0-0.1) 09/04/22 11:00 Nucleated RBC % (auto) 0 % 09/04/22 11:00 Nucleated RBCs # 0.0 /100WBC 09/04/22 11:00 Sodium 138 mmol/L (136-145) 09/04/22 11:00 Potassium 4.3 mmol/L (3.5-5.1) 09/04/22 11:00 Chloride 103 mmol/L (98-107) 09/04/22 11:00 Carbon Dioxide 25 mmol/L (22-29) 09/04/22 11:00 Anion Gap 14.3 (5-19) 09/04/22 11:00 BUN 11 mg/dL (6-20) 09/04/22 11:00 Creatinine 0.7 mg/dL (0.5-0.9) 09/04/22 11:00 GFR Calculation 94.7 mL/min (90-130) 09/04/22 11:00 Glucose 105 mg/dL (65-115) 09/04/22 11:00 Calculated Osmolality 286 mOsm/kg (285-295) 09/04/22 11:00 Calcium 8.9 mg/dL (8.5-10.5) 09/04/22 11:00 Total Bilirubin 0.5 mg/dL (0.15-1.2) 09/04/22 11:00 AST 15 U/L (0-32) 09/04/22 11:00 ALT 12 U/L (0-33) 09/04/22 11:00 Alkaline Phosphatase 111 U/L (35-105) H 09/04/22 11:00 Total Protein 6.9 g/dL (6.6-8.7) 09/04/22 11:00 Albumin 4.1 g/dL (3.5-5.2) 09/04/22 11:00 Globulin 2.8 g/dL (1.3-4.6) 09/04/22 11:00 Urine Color Light yellow (Yellow) 09/04/22 11:34 Urine Appearance Sl hazy (CLEAR) A 09/04/22 11:34 Urine pH 7 (5-7) 09/04/22 11:34 Ur Specific [place] 1.005 (1.005-1.030) 09/04/22 11:34 Urine Protein Neg (Negative) 09/04/22 11:34 Urine Glucose (UA) Norm (Normal) 09/04/22 11:34 Urine Ketones Negative (Negative) 09/04/22 11:34 Urine Blood Neg (Negative) 09/04/22 11:34 Urine Nitrate Negative (Negative) 09/04/22 11:34 Urine Bilirubin Neg (Negative) 09/04/22 11:34 Urine Urobilinogen Norm mg/dL (Negative) 09/04/22 11:34 Ur Leukocyte Esterase Negative (Negative) 09/04/22 11:34 Urine RBC 0-4 /hpf (0-2) H 09/04/22 11:34 Urine WBC 0-4 /hpf (0-5) H 09/04/22 11:34 Ur Squamous Epith Cells 0-4 /hpf (0-5) H 09/04/22 11:34 Amorphous Sediment Not Reportable 09/04/22 11:34 Urine Bacteria 1+ /hpf (NONE) H 09/04/22 11:34 Urine Mucus 1+ /hpf 09/04/22 11:34 Discharge Plan Discharge Patient Disposition: Home Clinical Impression: Seroma Condition: Stable Prescriptions: New Cleocin HCl 300 mg capsule 300 mg PO QID 7 Days Qty: 28 0RF No Action Botox 100 unit recon soln 155 unit IM Q90D 90 Days Qty: 2 0RF Hair,Skin and Nails Tablet 1 tab PO BEDTIME melatonin 3 mg capsule 3 mg PO BEDTIME cyanocobalamin (vitamin B-12) 1,000 mcg capsule 1,000 mcg PO BEDTIME Probiotic 3 billion cell capsule 3,000 mmu cells PO DAILY Rx Instructions: administer with a meal calcium polycarbophil [FiberCon] 625 mg tablet 1,250 mg PO BID Qty: 60 3RF cholecalciferol (vitamin D3) [Vitamin D3] 25 mcg (1,000 unit) Tablet 25 mcg PO BEDTIME ibuprofen 800 mg tablet 800 mg PO Q8H Qty: 30 0RF Colace 100 mg capsule 100 mg PO BID Qty: 60 0RF oxycodone-acetaminophen 5-325 mg tablet 1 tab PO Q4H PRN (Reason: pain) Qty: 30 0RF Discharge Orders: Discharge ED (Routine); Ordered 09/04/22 Ordered By: Sarah Beth Rankin Referrals: Austin Azul, [Primary Care Provider] - Discharge Diet: Advance as tolerated Discharge Activity: Increase activity as tolerated Patient Instructions: Opioid Safety, Pain Management Activity Restrictions/Additional Instructions: Please keep your follow up with [facility] tomorrow as scheduled Take meds as prescribed Continue to follow post surgery activity restriction as advised Return to ER with any worsening of symptoms or concerns as discussed Coding Level of Care Code ED Dental Laboratory Technician Apprentice for Seun Kemp
[2022-09-04] MEDS: fluconazole 100 mg Tablet 150 MG PO (13:25)
== END 2022-09-04 13:30 | disposition home or self-care (01) ==
PROVIDERS: Emergency Provider Registered Nurse; PCP Family Medicine
DX: O90.2 Hematoma of obstetric wound (principal)
CPT/HCPCS: 36415; 74177; 80053; 81001; 85025; 96361; 96374; 96375; 99285; J2270; J2405; J7030; Q9967

== ENCOUNTER 2022-09-20 19:06 | Emergency (ER) | payer BC, MEDICAID, SELFPAY ==
[2022-09-20 19:15] VITALS: BMI 36.1
[2022-09-20 19:17] VITALS: BP 113/73; PULSE 81; RESP 16; TEMP 37.2; O2SAT 99
--- NOTE | 2022-09-20 19:27 | ED_ITS ---
HPI - Skin/Abscess/Foreign Bdy General: Chief complaint: Skin/Abscess/Foreign Body Stated complaint: drainage and redness on site Time Seen by Provider: 09/20/22 19:27 History of Present Illness: 36-year-old female comes in today for complaints of right lower abdominal pain along her surgical incision line. Patient had a with removal of right ovary and debridement of scar tissue from prior C-sections. Patient reports 2 weeks ago she had been seen and was diagnosed with a seroma and placed on antibiotics at that time. Patient completed the antibiotics but over the last 2 to 3 days she has had some increased discomfort to the right lower quadrant. Patient does report occasional fever. Patient appears nontoxic. Patient appears in mild to moderate pain. Review of Systems General: Reports: 10 or more systems reviewed and unremarkable except in HPI and below Skin/Breast: Reports: other (Tenderness of right surgical incision of ) [facility] ED PFSH: Medical History Hemorrhoids History of blood clots History of endometriosis IBS (irritable bowel syndrome) Pelvic pain Renal calculus Surgical History H/O: hysterectomy History of abdominal surgery History of appendectomy History of 3 History of wisdom tooth extraction Family History Mother Hypertension Father Diabetes Hypertension Hypercholesteremia Denies family history of Colon cancer Ovarian cancer Heart disease Breast cancer Uterine cancer Thyroid disease Stroke Female Reproductive History: Para: 3 Spontaneous abortions: No Physical Exam Const: COMMON NORMALS: alert HENMT: COMMON NORMALS: normocephalic HEAD & SCALP: normocephalic Neck/C-Spine: COMMON NORMALS: full ROM Resp: COMMON NORMALS: normal respiratory effort Cardio: COMMON NORMALS: regular rate RATE: regular rate GI: COMMON NORMALS: Soft to palpation AUSCULTATION: Yes normoactive bowel sounds PALPATION: Yes Soft to palpation : OTHER: section online banking specialist on the right aspect of the line, there is a visible suture, no palpable mass or significant redness is noted. Neuro: SENSORIUM/ORIENTATION: Yes alert Skin: NARRATIVE SKIN EXAM: Healing section line with minimal redness and no obvious drainage Course Vital Signs: Vital signs: Vital Signs Temperature 98.9 F 09/20/22 19:17 Pulse Rate 81 09/20/22 19:17 Respiratory Rate 16 09/20/22 19:17 Blood Pressure 113/73 09/20/22 19:17 Pulse Oximetry 99 09/20/22 19:17 Oxygen Delivery Me thod Room Air 09/20/22 19:17 MDM - Skin/Abscess/Foreign Bdy Medicial Decision Making Patient comes in today for persistent tenderness to the right aspect of the C- section surgical line. Evaluation of the incision line noticed no significant redness. There was an exposed suture along the incision line. Differential diagnosis includes abscess, wound infection, seroma. Ultrasound of the area noted persistent seroma. No signs of severe infection was noted. Laboratory values were unremarkable. We will continue patient on antibiotic 1 tablet twice a day for the next 7 days and recommend referral back to surgeon. Patient reported understanding and agreed to plan to follow-up with Dr. Staton. Lab Data 09/20/22 19:09/20/22 19: Laboratory Results WBC 6.8 10^3/uL (4.0-10.0) 09/20/22 19: RBC 5.06 10^6/uL (4.1-5.3) 09/20/22: Hgb 14.5 g/dL (11.5-15.3) 09/20/22 19: Hct 43.6 % (37.0-47.0) 09/20/22: MCV 86.2 fl (81-99) 09/20/22: MCH 28.7 pg (28.0-34.0) 09/20/22 19: MCHC 33.3 g/dL (30.0-36.0) 09/20/22: RDW 12.4 % (12.1-15.1) 09/20/22: Plt Count 298 10^3/cmm (130-400) 09/20/22 19: MPV 9.8 fL (7.4-10.4) 09/20/22 19: Neut % (Auto) 55.7 % 09/20/22 19: Lymph % (Auto) 37.1 % 09/20/22 19:27 [place] % (Auto) 5.5 % 09/20/22 19: Eos % (Auto) 1.2 % 09/20/22 19: Baso % (Auto) 0.4 % 09/20/22 19: Neut # (Auto) 3.76 10^3/uL (1.8-7.7) 09/20/22 19: Lymph # (Auto) 2.5 10^3/uL (0.8-4.8) 09/20/22 19: [place] # (Auto) 0.4 10^3/uL (0.2-0.9) 09/20/22 19: Eos # (Auto) 0.1 10^3/uL (0.0-0.8) 09/20/22: Baso # (Auto) 0.0 10^3/uL (0.0-0.1) 09/20/22 19: Nucleated RBC % (auto) 0 % 09/20/22 19: Nucleated RBCs # 0.0 /100WBC 09/20/22 19: Sodium 139 mmol/L (136-145) 09/20/22 19: Potassium 3.9 mmol/L (3.5-5.1) 09/20/22 19: Chloride 105 mmol/L (98-107) 09/20/22 19: Carbon Dioxide 22 mmol/L (22-29) 09/20/22 19: Anion Gap 15.9 (5-19) 09/20/22 19: BUN 9 mg/dL (6-20) 09/20/22 19: Creatinine 0.7 mg/dL (0.5-0.9) 09/20/22 19: GFR Calculation 94.7 mL/min (90-130) 09/20/22 19: Glucose 110 mg/dL (65-115) 09/20/22 19: Calculated Osmolality 287 mOsm/kg (285-295) 09/20/22 19: Calcium 8.9 mg/dL (8.5-10.5) 09/20/22 19: Total Bilirubin 0.6 mg/dL (0.15-1.2) 09/20/22 19: AST 13 U/L (0-32) 09/20/22 19:27 ALT 14 U/L (0-33) 09/20/22 19:27 Alkaline Phosphatase 103 U/L (35-105) 09/20/22 19:27 Total Protein 6.9 g/dL (6.6-8.7) 09/20/22 19:27 Albumin 4.2 g/dL (3.5-5.2) 09/20/22 19:27 Globulin 2.7 g/dL (1.3-4.6) 09/20/22 19:27 Discharge Plan Discharge Patient Disposition: Home Clinical Impression: Seroma after procedure Condition: Stable Prescriptions: New amoxicillin-pot clavulanate 875-125 mg tablet 1 tab PO BID Qty: 14 0RF No Action Botox 100 unit recon soln 155 unit IM Q90D 90 Days Qty: 2 0RF Hair,Skin and Nails Tablet 1 tab PO BEDTIME melatonin 3 mg capsule 3 mg PO BEDTIME cyanocobalamin (vitamin B-12) 1,000 mcg capsule 1,000 mcg PO BEDTIME Probiotic 3 billion cell capsule 3,000 mmu cells PO DAILY Rx Instructions: administer with a meal calcium polycarbophil [FiberCon] 625 mg tablet 1,250 mg PO BID Qty: 60 3RF cholecalciferol (vitamin D3) [Vitamin D3] 25 mcg (1,000 unit) Tablet 25 mcg PO BEDTIME Colace 100 mg capsule 100 mg PO BID Qty: 60 0RF Discharge Orders: Discharge ED (Routine); Ordered 09/20/22 Ordered By: Pablo Arnold Referrals: Austin Azul DO [Primary Care Provider] - Discharge Diet: Usual diet Discharge Activity: Increase activity as tolerated Patient Instructions: Seroma (DC) Activity Restrictions/Additional Instructions: Take medication as directed. Follow-up with surgeon for further evaluation and treatment. Return to ED for new concerns or worsening symptoms. Coding Level of Care Code ED Refrigerating Technician for Seun Kemp
[2022-09-20 19:38] LABS: Basophils % 0.4 %; Eosinophils # 0.1 10^3/uL (0.0-0.8); Eosinophils % 1.2 %; Hematocrit 43.6 % (37.0-47.0); Hemoglobin 14.5 g/dL (11.5-15.3); Lymphocytes # 2.5 10^3/uL (0.8-4.8); Lymphocytes % 37.1 %; Mean Corpuscular HGB Conc 33.3 g/dL (30.0-36.0); Mean Corpuscular Hemoglobin 28.7 pg (28.0-34.0); Mean Corpuscular Volume 86.2 fl (81-99); Mean Platelet Volume 9.8 fL (7.4-10.4); Monocytes # 0.4 10^3/uL (0.2-0.9); Monocytes % 5.5 %; Neutrophils # 3.76 10^3/uL (1.8-7.7); Neutrophils % 55.7 %; Nucleated Red Blood Cells % 0 %; Platelet Count 298 10^3/cmm (130-400); Red Blood Count 5.06 10^6/uL (4.1-5.3); Red Cell Distribution Width 12.4 % (12.1-15.1); White Blood Count 6.8 10^3/uL (4.0-10.0)
--- NOTE | 2022-09-20 19:41 | USR_ITS ---
PROCEDURE INFORMATION: Exam: US Right Non-Vascular Joint or Other Extremity Structure Exam date and time: 09/20/2022 9:00 PM Age: 36 years old Clinical indication: Thigh; Prior surgery; Surgery date: <1 month; Surgery type: Patient has had 3 c-sections which left her with a painful scar. In addition, she needed her right ovary removed. To address these needs, she underwent a right oophrectomy and a cicatrix resection on 08/28/2022. Pathology reports of right ovary and csection scar remnant were benign. Post-operative, she began to experience rlq pain, and was seen in our er on 09/04/2022, at which time she underwent a CT exam of the area. CT report concludes: partially loculated fluid within the subcutaneous fat = 1.4 x 11.8 x 2.3cm. also noted at CT were prior appendectomy. The patient states that this was in 2007. She also has a history of multiple endometrial ablations and finally a hysterectomy in 2017. ; Additional info: Right lower abd, wound, R/O seroma or abscess TECHNIQUE: Imaging protocol: Right US joint or other nonvascular extremity structure or structures. Real-time ultrasound with image documentation. Limited study. Exam focused on the lower extremity in the region of clinical interest. COMPARISON: US pelvis lmt w transvag 04/26/2022 9:54 AM FINDINGS: Soft tissues: Localized thin walled fluid collection measuring 1.4 x 1.8 x 2.3 cm in the abdominal wall subcutaneous fat, suggestive of a seroma without extension into the abdomen, underlying infection of the fluid is not excluded by ultrasound alone. US/US soft tissue/extremity [id number] IMPRESSION: Localized thin walled fluid collection measuring 1.4 x 1.8 x 2.3 cm in the abdominal wall subcutaneous fat, suggestive of a seroma without extension into the abdomen, underlying infection of the fluid is not excluded by ultrasound alone.
[2022-09-20 19:57] LABS: Alanine Aminotransferase 14 U/L (0-33); Albumin Level 4.2 g/dL (3.5-5.2); Alkaline Phosphatase 103 U/L (35-105); Anion Gap 15.9 (5-19); Aspartate Amino Transferase 13 U/L (0-32); Blood Urea Nitrogen 9 mg/dL (6-20); Calcium 8.9 mg/dL (8.5-10.5); Carbon Dioxide 22 mmol/L (22-29); Chloride 105 mmol/L (98-107); Globulin 2.7 g/dL (1.3-4.6); Glomerular Filtration Rate 94.7 mL/min (90-130); Glucose 110 mg/dL (65-115); Osmolality Calculated 287 mOsm/kg (285-295); Potassium 3.9 mmol/L (3.5-5.1); Sodium 139 mmol/L (136-145); Total Bilirubin 0.6 mg/dL (0.15-1.2); Total Protein 6.9 g/dL (6.6-8.7)
[2022-09-20] MEDS: amoxicillin-clav 875-125 mg Tablet 1 TAB PO (21:23)
[2022-09-20 21:24] VITALS: BP 134/86; PULSE 74; O2SAT 95
== END 2022-09-20 21:25 | disposition home or self-care (01) ==
PROVIDERS: Emergency Medicine; Emergency Provider Nurse Practitioner Family; PCP Family Medicine
DX: L76.34 Postprocedural seroma of skin and subcutaneous tissue following other procedure (principal)
CPT/HCPCS: 36415; 76882; 80053; 85025; 99284

== ENCOUNTER 2022-12-31 08:30 | Emergency (ER) | payer BC, MEDICAID, SELFPAY ==
--- NOTE | 2022-12-31 08:36 | XRR_ITS ---
PROCEDURE INFORMATION: Exam: XR Right Shoulder Exam date and time: 12/31/2022 8:44 AM Age: 37 years old Clinical indication: Pain; Shoulder; Right TECHNIQUE: Imaging protocol: Radiologic exam of the right shoulder. Views: 2 or more views. COMPARISON: No relevant prior studies available. FINDINGS: Bones/joints: Normal. Soft tissues: Unremarkable. XR/XR shoulder RT min 2V* [id number] IMPRESSION: No acute findings.
--- NOTE | 2022-12-31 08:36 | W.ED.GENADLT ---
HPI - General Adult General: Chief complaint: Extremity Injury, Upper Stated complaint: right shoulder pain Time Seen by Provider: 12/31/22 08:35 Source: patient Mode of arrival: ambulatory History of Present Illness: 37-year-old female presents to the emergency room with complaints of right shoulder pain should be doing a lot of lifting up above her head last week its been progressively worsening this morning she went to pull on a sure he felt a popping sensation in her right shoulder difficult time with movement and marked increase in pain. No falls. Quality: sharp Pain Consistency: constant Relieving factors: immobilization Exacerbating factors: none Associated symptoms: Deny chest pain, confusion, cough, diaphoresis, decreased appetite, dyspnea, fevers/chills, headache(s), malaise, rash, palpitations, seizures, short of breath, syncope or weakness Treatments prior to arrival: none Review of Systems Const: Denies: malaise or diaphoresis Card: Denies: chest pain, palpitations or syncope Resp: Denies: dyspnea Musc: Denies: neck pain or back pain Skin/Breast: Denies: rash Neuro: Denies: headache(s) or confusion PFSH ED PFSH: Medical History Hemorrhoids History of blood clots History of endometriosis IBS (irritable bowel syndrome) Pelvic pain Renal calculus Surgical History H/O: hysterectomy History of abdominal surgery History of appendectomy History of 3 History of wisdom tooth extraction Family History Mother Hypertension Father Diabetes Hypertension Hypercholesteremia Denies family history of Colon cancer Ovarian cancer Heart disease Breast cancer Uterine cancer Thyroid disease Stroke Female Reproductive History: Para: 3 Spontaneous abortions: No Physical Exam Const: GENERAL APPEARANCE: cooperative and comfortable ORIENTATION/CONSCIOUSNESS: Yes awake, Yes oriented to person, Yes oriented to place and Yes oriented to time HENMT: COMMON NORMALS: normocephalic, atraumatic and hearing grossly normal bilaterally HEAD & SCALP: normocephalic and atraumatic Resp: COMMON NORMALS: normal respiratory effort, No retractions and No use of accessory muscles Extremity: COMMON NORMALS: normal to inspection, capillary refill normal, no clubbing, cyanosis or edema, no calf tenderness and no pedal edema OTHER: Positive impingment sign R shoulder, normal passive ROM but had pain. Neuro: SENSORIUM/ORIENTATION: Yes oriented to person, Yes oriented to place and Yes oriented to time Skin: COMMON NORMALS: no rashes or lesions noted GENERAL SKIN EXAM: no rashes or lesions noted Course Vital Signs: Vital signs: Vital Signs Temperature 98.1 F 12/31/22 08:42 Pulse Rate 74 12/31/22 09:28 Respiratory Rate 16 12/31/22 09:28 Blood Pressure 117/67 12/31/22 09:28 Pulse Oximetry 100 12/31/22 09:28 MDM - General Adult Medical Decision Making Sling arm follow-up with Ortho. posible rotator cuff pathology Medical Records I reviewed the patient's medical records. Lab Data I reviewed the patient's lab results. Radiology Impressions Shoulder X-Ray 12/31/22 08:36 IMPRESSION: No acute findings. All radiology interpretation(s) finalized by discharge Discharge Plan Discharge Patient Disposition: Home Clinical Impression: Pain in right shoulder Condition: Stable Prescriptions: New diclofenac sodium 75 mg tablet,delayed release (DR/EC) 75 mg PO Q12H PRN (Reason: pain) Qty: 20 0RF No Action Botox 100 unit recon soln 155 unit IM Q90D 90 Days Qty: 2 0RF Hair,Skin and Nails Tablet 1 tab PO BEDTIME melatonin 3 mg capsule 3 mg PO BEDTIME cyanocobalamin (vitamin B-12) 1,000 mcg capsule 1,000 mcg PO BEDTIME Probiotic 3 billion cell capsule 3,000 mmu cells PO DAILY Rx Instructions: administer with a meal calcium polycarbophil [FiberCon] 625 mg tablet 1,250 mg PO BID Qty: 60 3RF cholecalciferol (vitamin D3) [Vitamin D3] 25 mcg (1,000 unit) Tablet 25 mcg PO BEDTIME Colace 100 mg capsule 100 mg PO BID Qty: 60 0RF amoxicillin-pot clavulanate 875-125 mg tablet 1 tab PO BID Qty: 14 0RF Discharge Orders: Discharge ED (Routine); Ordered 12/31/22 Ordered By: Naresh Celis Referrals: Austin Azul DO [Primary Care Provider] - Discharge Diet: Usual diet Discharge Activity: Increase activity as tolerated Patient Instructions: Opioid Safety, Pain Management Activity Restrictions/Additional Instructions: Thank you for choosing [facility] for your healthcare needs today. Please realize this is an emergency room and that we are providing you with a medical screening exam and this may not be complete and all inclusive of all the testing and or work up that you may need to determine your ailment or severity of your illness. It is very important that you follow up as instructed or that you return to the Emergency Department should you have concerns or if your condition changes or worsens in any way. Case management will make a follow up appointment with orthopaedics. Coding Level of Care Code ED Professor Of Art History for Seun Kemp
[2022-12-31 08:40] VITALS: BMI 36.1
[2022-12-31 08:42] VITALS: BP 117/67; PULSE 64; RESP 16; TEMP 36.7; O2SAT 99
--- NOTE | 2022-12-31 09:10 | DCPLANNER ---
Referral was sent to ortho on 12/31/22 at 0910 am. clinic to contact patient
[2022-12-31] MEDS: HYDROcodone-acetaminophen 5-325 mg Tablet 1 TAB PO (09:27)
[2022-12-31 09:28] VITALS: BP 117/67; PULSE 74; RESP 16; O2SAT 100
== END 2022-12-31 09:29 | disposition home or self-care (01) ==
PROVIDERS: Emergency Provider Family Medicine; PCP Family Medicine
DX: M25.511 Pain in right shoulder (principal)
CPT/HCPCS: 73030; 99283

== ENCOUNTER → 2023-01-18 08:14 | Outpatient (BNVA) | payer BC, MEDICAID, SELFPAY | PROVIDERS: PCP Family Medicine; Visit Provider Nurse Practitioner Family | DX: J02.9 Acute pharyngitis, unspecified (principal); J06.9 Acute upper respiratory infection, unspecified | CPT/HCPCS: 87880 ==

== ENCOUNTER → 2023-02-12 08:27 | Outpatient (BNVA) | payer BC, MEDICAID, SELFPAY | PROVIDERS: PCP Family Medicine; Visit Provider Physician Assistant | DX: M75.41 Impingement syndrome of right shoulder (principal) | CPT/HCPCS: 73030 ==

== ENCOUNTER 2023-03-19 15:32 | Outpatient (CLI) | payer BC, MEDICAID, SELFPAY ==
--- NOTE | 2023-03-19 16:00 | MR_ITS ---
WS: [id number] MRI RIGHT SHOULDER NONCONTRAST TECHNIQUE: Sagittal T2, coronal T1, T2 and proton density imaging. Axial gradient PDE imaging. CLINICAL INFORMATION: right shoulder injury COMPARISON: None. FINDINGS: Mild degenerative arthritis AC joint with mild synovial thickening. Slight subacromial spurring. Slig ht impingement on the distal supraspinatus. Trace subacromial fluid. Normal distal supraspinatus. Nor mal infraspinatus. Normal teres minor. Subscapularis is normal. Normal biceps tendon within the bicipital groove. Glenoid labrum appears grossly normal. Normal bicep s labral anchor. Normal bone marrow signal in the humerus and glenoid. No other suspicious findings. IMPRESSION: 1. Mild degenerative arthritis AC joint with mild downsloping of the acromion. Slight impingement on the distal supraspinatus with trace subacromial fluid. Trace edema AC joint. 2. Normal rotator cuff. 3. Normal biceps tendon in the bicipital groove. 4. Glenoid labrum and biceps labral anchor appear grossly normal. 5. No other suspicious findings.
== END 2023-03-19 15:33 | disposition home or self-care (01) ==
LOC: RAD 15:33
PROVIDERS: PCP Family Medicine; Visit Provider Physician Assistant
DX: M75.41 Impingement syndrome of right shoulder (principal); M19.011 Primary osteoarthritis, right shoulder
CPT/HCPCS: 73221

== ENCOUNTER → 2023-05-29 10:38 | Outpatient (BNVA) | payer MEDICAID, SELFPAY | PROVIDERS: PCP Family Medicine; Visit Provider Family Medicine | DX: N63.10 Unspecified lump in the right breast, unspecified quadrant (principal); R50.9 Fever, unspecified; R53.82 Chronic fatigue, unspecified; Z11.4 Encounter for screening for human immunodeficiency virus [HIV]; Z11.59 Encounter for screening for other viral diseases | CPT/HCPCS: 80053; 80061; 84439; 84443; 85025; 86140; 86618; 86666; 86757; 86803; 87806 ==

== ENCOUNTER 2023-06-17 13:23 | Outpatient (CLI) | payer MEDICAID, SELFPAY ==
--- NOTE | 2023-06-17 13:30 | MM_ITS ---
WS: [id number] BILATERAL 3D TOMOSYNTHESIS DIGITAL DIAGNOSTIC MAMMOGRAPHY WITH CAD CLINICAL INFORMATION: R breast lump HISTORY: RIGHT breast lump COMPARISON: Baseline TECHNIQUE: Bilateral CC, MLO, and ML views. FINDINGS: The breasts are composed of heterogeneous fibroglandular density, which can limit the detection of sm all underlying mass lesions. Dense parenchymal tissue deep to the palpable marker RIGHT breast with u ltrasound of this area is pending. Unremarkable LEFT breast. ULTRASOUND BREAST RIGHT TECHNIQUE: Ultrasound right breast focused area of concern. CLINICAL INFORMATION: R breast lump FINDINGS: Ultrasound RIGHT breast in the area of concern 3 o'clock position 7 cm from the nipple. Dense underly ing parenchymal tissue. No cystic or solid lesions. No suspicious lesions to target for biopsy. Findi ngs are benign. Recommend annual screening mammography age 40 IMPRESSION: MM/[place] [id number] BI-RADS: 2-Benign FOLLOW UP: Age 40 Recommend annual screen mammography age 40
--- NOTE | 2023-06-17 14:00 | US_ITS ---
WS: [id number] BILATERAL 3D TOMOSYNTHESIS DIGITAL DIAGNOSTIC MAMMOGRAPHY WITH CAD CLINICAL INFORMATION: R breast lump HISTORY: RIGHT breast lump COMPARISON: Baseline TECHNIQUE: Bilateral CC, MLO, and ML views. FINDINGS: The breasts are composed of heterogeneous fibroglandular density, which can limit the detection of sm all underlying mass lesions. Dense parenchymal tissue deep to the palpable marker RIGHT breast with u ltrasound of this area is pending. Unremarkable LEFT breast. ULTRASOUND BREAST RIGHT TECHNIQUE: Ultrasound right breast focused area of concern. CLINICAL INFORMATION: R breast lump FINDINGS: Ultrasound RIGHT breast in the area of concern 3 o'clock position 7 cm from the nipple. Dense underly ing parenchymal tissue. No cystic or solid lesions. No suspicious lesions to target for biopsy. Findi ngs are benign. Recommend annual screening mammography age 40 IMPRESSION: US/US breast RT limited* [id number] BI-RADS: 2-Benign FOLLOW UP: Age 40 Recommend annual screen mammography age 40
== END 2023-06-17 13:24 | disposition home or self-care (01) ==
LOC: RAD 13:23
PROVIDERS: PCP Family Medicine; Visit Provider Family Medicine
DX: N63.10 Unspecified lump in the right breast, unspecified quadrant (principal); R92.30 Dense breasts, unspecified
CPT/HCPCS: 76642; 77062; G0279

== ENCOUNTER 2023-10-17 21:35 | Emergency (ER) | payer MEDICAID, SELFPAY ==
[2023-10-17 21:41] VITALS: BP 116/71; PULSE 73; RESP 18; TEMP 36.3; O2SAT 98; BMI 35.3
--- NOTE | 2023-10-17 22:04 | ED_ITS ---
HPI - General Adult General: Chief complaint: General Medical Stated complaint: SOB,Fever Time Seen by Provider: 10/17/23 21:50 History of Present Illness: 38-year-old female comes in today for co mplaints of fever and cough starting this morning about 2:00. Patient appears nontoxic. Patient appears in no pain. Patient denies any chronic medical problems except migraine syndromes. Related Data Home Medications Medication Instructions Recorded Confirmed cyanocobalamin (vitamin B-12) 1,000 mcg PO BEDTIME 11/15/21 07/11/23 1,000 mcg capsule lactobacillus combination no.4 3 3,000 mmu cells PO DAILY 11/15/21 07/11/23 billion cell capsule (Probiotic) multivitamin with minerals 1 tab PO BEDTIME 11/15/21 07/11/23 (Hair,Skin and Nails tablet) cholecalciferol (vitamin D3) 25 25 mcg PO BEDTIME 04/26/22 07/11/23 mcg (1,000 unit) tablet (Vitamin D3) Previous Rx's Medication Instructions Recorded calcium polycarbophil 625 mg 1,250 mg (2 x 625 mg) PO BID 04/16/22 tablet (FiberCon) constipation/diarrhea #60 tabs onabotulinumtoxinA 100 unit 155 unit IM Q90D 90 days #2 ea 08/20/22 solution for injection (Botox) diclofenac sodium 75 mg 75 mg PO Q12H PRN pain #20 tabs 12/31/22 tablet,delayed release amoxicillin 875 mg-potassium 1 tab PO BID #14 tabs 06/25/23 clavulanate 125 mg tablet fluconazole 150 mg tablet 150 mg PO Q3D 2 doses #2 tabs 06/25/23 Allergies Allergy/AdvReac Type Severity Reaction Status Date / Time latex Allergy ALGY-Rash Verified 07/11/23 14:50 Review of Systems General: Reports: 10 or more systems reviewed and unremarkable except in HPI and below PFSH ED PFSH: Medical History Pelvic pain Hemorrhoids IBS (irritable bowel syndrome) History of endometriosis History of blood clots Renal calculus Surgical History History of 3 History of appendectomy History of wisdom tooth extraction History of abdominal surgery H/O: hysterectomy Family History Mother Hypertension Father Diabetes Hypertension Hypercholesteremia Denies family history of Colon cancer Ovarian cancer Heart disease Breast cancer Uterine cancer Thyroid disease Stroke Social History Smoking and tobacco/nicotine status: never used tobacco/nicotine Female Reproductive History: Para: 3 Spontaneous abortions: No Physical Exam Const: COMMON NORMALS: alert HENMT: COMMON NORMALS: normocephalic and TM's normal bilaterally HEAD & SCALP: normocephalic TYMPANIC MEMBRANE: TM's normal bilaterally THROAT: posterior oropharynx abnormal erythema Resp: COMMON NORMALS: normal respiratory effort Cardio: COMMON NORMALS: regular rate RATE: regular rate Extremity: COMMON NORMALS: normal to inspection Neuro: SENSORIUM/ORIENTATION: Yes alert Skin: COMMON NORMALS: turgor normal GENERAL SKIN EXAM: turgor normal Course Vital Signs: Vital signs: Vital Signs Temperature 97.3 F L 10/17/23 21:41 Pulse Rate 73 10/17/23 21:41 Respiratory Rate 18 10/17/23 21:41 Blood Pressure 116/71 10/17/23 21:41 Pulse Oximetry 98 10/17/23 21:41 Oxygen Delivery Me thod Room Air 10/17/23 21:41 MDM - General Adult Medical Decision Making 38-year-old female comes in today for complaints of illness starting this morning at about 2:00. On exam respirations are even. Lungs are clear to auscultation. Posterior pharynx slightly erythematous. Bilateral TMs are normal. Vital signs are normal. Differential diagnosis includes viral syndrome, COVID-19, influenza, strep, malingering. COVID was negative. Reviewed exam with patient with recommendation for treatment of viral syndrome and need for follow-up or return to the ER. Patient reported understanding. Lab Data Laboratory Results SARS-CoV-2 Ag (Rapid) negative (Negative) 10/17/23 21:55 No radiology studies performed this visit Discharge Plan Discharge Patient Disposition: Home Clinical Impression: Viral illness Condition: Stable Prescriptions: No Action Botox 100 unit recon soln 155 unit IM Q90D 90 Days Qty: 2 0RF fluconazole 150 mg tablet 150 mg PO Q3D Qty: 2 0RF amoxicillin-pot clavulanate 875-125 mg tablet 1 tab PO BID Qty: 14 0RF Hair,Skin and Nails Tablet 1 tab PO BEDTIME cyanocobalamin (vitamin B-12) 1,000 mcg capsule 1,000 mcg PO BEDTIME Probiotic 3 billion cell capsule 3,000 mmu cells PO DAILY Rx Instructions: administer with a meal calcium polycarbophil [FiberCon] 625 mg tablet 1,250 mg PO BID Qty: 60 3RF cholecalciferol (vitamin D3) [Vitamin D3] 25 mcg (1,000 unit) Tablet 25 mcg PO BEDTIME diclofenac sodium 75 mg tablet,delayed release (DR/EC) 75 mg PO Q12H PRN (Reason: pain) Qty: 20 0RF Discharge Orders: Discharge ED (Routine); Ordered 10/17/23 Ordered By: Pablo Arnold Referrals: Austin Azul DO [Primary Care Provider] - Discharge Diet: Usual diet Discharge Activity: Increase activity as tolerated Patient Instructions: Viral Syndrome (ED) Activity Restrictions/Additional Instructions: Drink plenty of water and fluids. Use acetaminophen and ibuprofen for pain and fever. Follow-up with primary care as needed. Return to ED for worsening symptoms such as increasing shortness of breath, inability to hold fluids down, severe chest pain, or no urine output in 8 to 12 hours. Stand Alone Forms: Work/School Release Coding Level of Care Code ED Logistics System Engineer for Seun Kemp
[2023-10-17 22:38] LABS: SARS Covid-2 Antigen negative (Negative)
[2023-10-17 22:52] VITALS: BP 132/72; PULSE 65; RESP 16; TEMP 36.3; O2SAT 95
== END 2023-10-17 22:53 | disposition home or self-care (01) ==
PROVIDERS: Emergency Provider Nurse Practitioner Family; PCP Family Medicine
DX: B34.9 Viral infection, unspecified (principal)
CPT/HCPCS: 87426; 99283

== ENCOUNTER → 2023-10-19 10:35 | Outpatient (BNVA) | payer MEDICAID, SELFPAY | PROVIDERS: PCP Family Medicine; Visit Provider Emergency Medicine | DX: Z20.822 Contact with and (suspected) exposure to COVID-19 (principal) | CPT/HCPCS: 87426 ==

== ENCOUNTER → 2023-11-29 10:27 | Outpatient (BNVA) | payer MEDICAID, SELFPAY | PROVIDERS: PCP Family Medicine; Visit Provider Family Medicine | DX: Z86.718 Personal history of other venous thrombosis and embolism (principal); R07.9 Chest pain, unspecified; E89.40 Asymptomatic postprocedural ovarian failure; R53.82 Chronic fatigue, unspecified | CPT/HCPCS: 80053; 82607; 83001; 83002; 84403; 84439; 84443; 84481; 85025 ==

== ENCOUNTER 2024-03-29 19:00 | Emergency (ER) | payer MEDICAID, SELFPAY ==
[2024-03-29 19:42] VITALS: BP 130/77; PULSE 117; RESP 18; TEMP 38.4; O2SAT 97
[2024-03-29 22:08] LABS: Covid PCR NEGATIVE (Negative); Influenza A NEGATIVE (Negative); Influenza B NEGATIVE (Negative); Respiratory Syncytial Virus Ce NEGATIVE (Negative)
== END 2024-03-29 22:04 | disposition left against medical advice (07) ==
LOC: ER 19:05
PROVIDERS: Nurse Practitioner Family; Emergency Provider Family Medicine; PCP Family Medicine
DX: Z53.21 Procedure and treatment not carried out due to patient leaving prior to being seen by health care provider (principal)
CPT/HCPCS: 87637

== ENCOUNTER 2024-04-03 08:20 | Outpatient (CLI) | payer MEDICAID, SELFPAY ==
--- NOTE | 2024-04-03 08:34 | XR_ITS ---
WS: [id number] Exam: XR hip RT 2-3V wo/w pel* [id number] Date/Time of Exam: 04/03/2024 8:34 AM Reason For Exam: righ hip pain, no injury No fracture. The joint spaces preserved. Normal soft tissues. Mild calcification along the greater tr ochanter that might reflect calcific bursitis. XR/XR hip RT 2-3V wo/w pel* [id number] IMPRESSION: 1. Small soft tissue calcification along the greater trochanter that could be s econdary to calcific bursitis. The RIGHT hip is otherwise normal.
== END 2024-04-03 08:21 | disposition home or self-care (01) ==
LOC: RAD 08:21
PROVIDERS: PCP Family Medicine; Visit Provider Family Medicine
DX: M25.551 Pain in right hip (principal); G89.29 Other chronic pain; R93.7 Abnormal findings on diagnostic imaging of other parts of musculoskeletal system
CPT/HCPCS: 73502

== ENCOUNTER → 2024-04-06 14:59 | Outpatient (BNVA) | payer MEDICAID, SELFPAY | PROVIDERS: Visit Provider Registered Nurse Neonatal Intensive Care | DX: R30.9 Painful micturition, unspecified (principal); R30.0 Dysuria; R39.9 Unspecified symptoms and signs involving the genitourinary system | CPT/HCPCS: 81000; 87086 ==

== ENCOUNTER 2024-05-14 09:58 | Outpatient (CLI) | payer MEDICAID, SELFPAY ==
--- NOTE | 2024-05-14 10:15 | MM_ITS ---
WS: [id number] Bilateral diagnostic 3D tomosynthesis digital mammogram, 05/14/2024 Clinical Data: N64.9 - Disorder of breast, unspecified Comparison: 06/17/2023 Findings: The breast parenchymal pattern shows heterogeneous density. No spiculated masses nor clustered calcifications are seen. There are no secondary signs of carcinoma. There are lymph nodes in both axilla. MM/MM diag BI tomosynthesis [id number] Impression: 1. Negative bilateral mammograms unchanged. 2. Bilateral breast ultrasound will be done. BIRADS: 1 - Negative FOLLOW UP: See Report The CAD inventory checker was used
--- NOTE | 2024-05-14 10:45 | US_ITS ---
WS: [id number] Bilateral breast ultrasound, 05/14/2024 Clinical Data: N64.4 - Mastodynia/LUMPS Comparison: Right breast ultrasound, 06/17/2023 Findings: The breasts show normal tissue. No masses or cysts can be seen. In the area of concern only normal breast tissue is noted. US/US breast BI limited* [id number] Impression: 1. Negative bilateral breast ultrasound. 2. Recommend return to clinical evaluation and annual screening mammograms at a ge 40. BIRADS: 1 - Negative FOLLOW UP: See Report
== END 2024-05-14 09:59 | disposition home or self-care (01) ==
PROVIDERS: PCP Family Medicine; Visit Provider Nurse Practitioner Women's Health
DX: N64.4 Mastodynia (principal); R59.0 Localized enlarged lymph nodes
CPT/HCPCS: 76642; 77062; G0279

== ENCOUNTER → 2024-05-19 14:42 | Outpatient (BNVA) | payer MEDICAID, SELFPAY | PROVIDERS: PCP Family Medicine; Visit Provider Obstetrics & Gynecology | DX: R10.2 Pelvic and perineal pain (principal); N83.202 Unspecified ovarian cyst, left side; Z98.890 Other specified postprocedural states | CPT/HCPCS: 76830 ==

== ENCOUNTER 2024-07-17 09:15 | Outpatient (CLI) | payer MEDICAID, SELFPAY ==
--- NOTE | 2024-07-17 09:30 | MR_ITS ---
WS: [id number] MRI HEAD WITHOUT CONTRAST TECHNIQUE: Sagittal T1, T2 axial, T2 axial FLAIR, axial and coronal T1 images, axial susceptibility weighted imaging, axial diffusion weighted images, and coronal T2 images were obtained. CLINICAL INFORMATION: G43.711 - Chronic migraine without aura, intractable, wit... COMPARISON: None. FINDINGS: No evidence of restricted diffusion to suggest acute ischemia. No suspicious intracranial signal abnormalities. No hydrocephalus. No hemosiderin. Normal posterior fossa. Normal vascular flow voids at the skull base. No extra-axial fluid collections. Mild mucosal thickening in the paranasal sinuses. Mild mucosal thickening in the RIGHT greater than LEFT mastoid air cells. Normal optic chiasm and pituitary infundibulum. No other acute findings. MR/MR head wo con* [id number] IMPRESSION: 1. No evidence of restricted diffusion to suggest acute ischemia. 2. No suspicious intracranial signal abnormalities. No hydrocephalus. 3. No hemosiderin. 4. Mild mucosal thickening in the paranasal sinuses and mastoid air cells.
== END 2024-07-17 09:16 | disposition home or self-care (01) ==
PROVIDERS: PCP Family Medicine; Visit Provider Specialist
DX: G43.711 Chronic migraine without aura, intractable, with status migrainosus (principal); R53.82 Chronic fatigue, unspecified; J34.89 Other specified disorders of nose and nasal sinuses; H74.8X3 Other specified disorders of middle ear and mastoid, bilateral
CPT/HCPCS: 70551

== ENCOUNTER → 2024-07-28 09:42 | Outpatient (BNVA) | payer MEDICAID, SELFPAY | PROVIDERS: PCP Family Medicine; Visit Provider Family Medicine | DX: K58.9 Irritable bowel syndrome, unspecified (principal); R53.82 Chronic fatigue, unspecified; N95.1 Menopausal and female climacteric states; R79.89 Other specified abnormal findings of blood chemistry; E55.9 Vitamin D deficiency, unspecified | CPT/HCPCS: 80053; 80061; 82306; 82607; 83036; 84439; 84443; 85025 ==

== ENCOUNTER → 2024-08-11 12:48 | Outpatient (BNVA) | payer MEDICAID, SELFPAY | PROVIDERS: PCP Family Medicine; Referring Provider Family Medicine; Visit Provider Orthopaedic Surgery | DX: M70.62 Trochanteric bursitis, left hip (principal) | CPT/HCPCS: 73502 ==

== ENCOUNTER 2024-09-25 06:22 | Outpatient (CLI) | payer MEDICAID, SELFPAY ==
--- NOTE | 2024-09-25 07:00 | US_ITS ---
WS: [id number] RIGHT UPPER QUADRANT ULTRASOUND HISTORY: R10.11 - Right upper quadrant pain COMPARISON: None available. Liver: 15.3 cm in length. Normal size liver and echogenicity. No bile duct dilatation or mass. Portal Vein: Normal hepatopetal flow with monophasic waveform. Gallbladder: Normally distended gallbladder with no stones or wall thickening. CBD: 0.5 cm Pancreas: Normal size and echogenicity. Right kidney: 11.6 cm in length. Normal size and echogenicity. No hydronephrosis or mass. Aorta and IVC: Unremarkable abdominal aorta and IVC. No ascites. US/US abdomen limited [id number] IMPRESSION: Normal right upper quadrant ultrasound.
== END 2024-09-25 06:23 | disposition home or self-care (01) ==
LOC: RAD 06:24
PROVIDERS: PCP Family Medicine; Visit Provider Family Medicine
DX: R10.11 Right upper quadrant pain (principal); R19.8 Other specified symptoms and signs involving the digestive system and abdomen; R50.9 Fever, unspecified; R11.0 Nausea; R19.5 Other fecal abnormalities
CPT/HCPCS: 76705

== ENCOUNTER 2024-10-01 05:57 | Day surgery (SDC) | payer MEDICAID, SELFPAY ==
[2024-10-01 06:13] VITALS: BP 108/81; PULSE 98; RESP 18; TEMP 36.4; O2SAT 95; BMI 36.9
--- NOTE | 2024-10-01 06:59 | ANES.PREANE2 ---
Pre-Anesthetic Assessment Height/Weight: Height 1.75 m Weight 113.398 kg Temp Pulse Resp BP Pulse Ox O2 Del Method 97.5 F L 98 18 108/81 95 Room Air 10/01/24 06:13 10/01/24 06:13 10/01/24 06:13 10/01/24 06:13 10/01/24 06:13 10/01/24 06:13 Preop Diagnosis: IBS Operation Date: 10/01/24 07:00 Proposed Procedures p Colonoscopy 88576 G0105 K63.5 R19.8(Not Applicable) - Rajiv Gutiérrez MD Was Beta Savita taken within 24 hours: N/A Was Clonidine taken within 24 hours: N/A Last intake: Intake Last Liquid Date 09/30/24 Last Liquid Time 23:59 Last Solid Date 09/29/24 Last Solid Time 14:00 Social No alcohol and No tobacco Exam alert, oriented x 3, clear to auscultation bilaterally and regular rate & rhythm Airway Submandibular: within normal limits Cervical ROM: within normal limits Mallampati: Class II Dentition: full History/ROS No significant history except as noted and No significant complaints Pulmonary Asthma CV/HEM None reported None reported Hepatic None reported GI Diarrea Metabolic Morbid [place] [facility] [place] None reported Neuropsych Anxiety Anesthetic Plan ASA status: 3 Anesthesia: Anesthesia Evaluation and MAC Risk of > 500 ml blood loss (7ml/kg in children): No Medications/Allergies Home Medications ?Medication ?Instructions ?Recorded ?Confirmed ?Last Taken ?Type lactobacillus combination no.4 3 3,000 mmu cells PO DAILY 11/15/21 09/28/24 09/29/24 History billion cell capsule (Probiotic) multivitamin with minerals 1 tab PO BEDTIME 11/15/21 09/28/24 09/29/24 History (Hair,Skin and Nails tablet) cholecalciferol (vitamin D3) 25 25 mcg PO BEDTIME 04/26/22 09/28/24 09/29/24 History mcg (1,000 unit) tablet (Vitamin D3) onabotulinumtoxinA 100 unit 155 unit IM Q90D 90 days #2 ea 08/20/22 09/28/24 09/29/24 Rx solution for injection (Botox) albuterol sulfate 90 mcg/actuation 2 inh inhalation Q4H PRN shortness 10/19/23 09/28/2425 Rx aerosol inhaler of breath or wheezing #6.7 grams aspirin 81 mg chewable tablet 81 mg PO DAILY #90 tabs 11/29/23 09/28/24 09/29/24 Rx fluconazole 150 mg tablet 150 mg PO Q3D PRN yeast infection 06/01/24 09/28/24 09/29/24 Rx #3 tabs estradiol 1 mg tablet 1 mg PO DAILY #30 tabs 07/09/24 09/28/24 09/29/24 Rx linaclotide 72 mcg capsule 72 mcg PO DAILY 30 days #30 caps 07/29/24 09/28/24 09/29/24 Rx (Linzess) progesterone micronized 100 mg 100 mg PO BEDTIME #90 caps 09/16/24 09/28/24 09/29/24 Rx capsule atogepant 60 mg tablet (Qulipta) 60 mg PO DAILY PRN Migraine 09/28/24 09/28/24 09/29/24 History Headache calcium polycarbophil 625 mg 1,250 mg PO DAILY 09/28/24 09/28/24 09/29/24 History tablet (FiberCon) constipation/diarrhea estradiol 0.01% (0.1 mg/gram) 1 g vaginal DAILY 09/28/24 09/28/24 09/29/24 History vaginal cream Allergies Allergy/AdvReac Type Severity Reaction Status Date / Time latex Allergy ALGY-Rash Verified 09/24/24 09:28 Current Medications Generic Name Dose Route Start Last Admin Trade Name Freq PRN Reason Stop Dose Admin Sodium Chloride 1,000 mls @ 15 mls/hr 10/01/24 06:02 10/01/24 06:29 Sodium Chloride 0.9% IV 10/02/24 06:01 15 mls/hr .Q24H PRN Administration COLONOSCOPY FLUIDS PFSH Anesthesia Medical History (Updated 09/24/24 @ 09:49 by Austin Azul DO) Hemorrhoids IBS (irritable bowel syndrome) Obesity (BMI 30-39.9) Chronic right hip pain Lump of right breast History of nephrolithiasis Asthma, mild intermittent Chronic fatigue Chronic migraine with aura History of endometriosis History of blood clots in [place];in leg--was on warfarin; reports a blood clot in uterus in past too but wasn't on anything for it; Surgical History Hx of tonsillectomy Hx of appendectomy History of right salpingo-oophorectomy 08/24 done for cyst--benign--done through old C-sxn scar History of 3 History of appendectomy History of wisdom tooth extraction History of abdominal surgery multiple for endometriosis--exploratory and for treatment H/O: hysterectomy Hyst in her 20s for heavy bleeding, no cervical cancer Family History Mother Hypertension Father Diabetes Hypertension Hypercholesteremia Denies family history of Colon cancer Ovarian cancer Heart disease Breast cancer Uterine cancer Thyroid disease Stroke Social History Smoking and tobacco/nicotine status: never used tobacco/nicotine Alcohol intake: current Alcohol intake frequency: holidays/special occasions only Substance/Drug Use: never Household members: spouse and children Marital status: Number of children: 3 Highest education level completed: High School Graduate 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
--- NOTE | 2024-10-01 07:02 | W.PM.OPSFHP ---
Same Day Surgery H&P Indication for Procedure/HPI DATE OF PROCEDURE: October 01, 2024 CHIEF COMPLAINT/INDICATIONFOR SURGICAL PROCEDURE: altered bowel movements PREOP DIAGNOSIS: IBS PLANNED PROCEDURE: Operation Date: 10/01/24 07:00 Proposed Procedures p Colonoscopy [id number] G0105 K63.5 R19.8(Not Applicable) - Rajiv Gutiérrez MD Medications/Allergies* Home Medications ?Medication ?Instructions ?Recorded ?Confirmed ?Type lactobacillus combination no.4 3 3,000 mmu cells PO DAILY 11/15/21 09/28/24 History billion cell capsule (Probiotic) multivitamin with minerals 1 tab PO BEDTIME 11/15/21 09/28/24 History (Hair,Skin and Nails tablet) cholecalciferol (vitamin D3) 25 25 mcg PO BEDTIME 04/26/22 09/28/24 History mcg (1,000 unit) tablet (Vitamin D3) atogepant 60 mg tablet (Qulipta) 60 mg PO DAILY PRN Migraine 09/28/24 09/28/24 History Headache calcium polycarbophil 625 mg 1,250 mg PO DAILY 09/28/24 09/28/24 History tablet (FiberCon) constipation/diarrhea estradiol 0.01% (0.1 mg/gram) 1 g vaginal DAILY 09/28/24 09/28/24 History vaginal cream Allergies/Adverse Reactions Allergy/AdvReac Type Severity Reaction Status Date / Time latex Allergy ALGY-Rash Verified 09/24/24 09:28 Current Medications: Generic Name Dose Route Start Last Admin Trade Name Freq PRN Reason Stop Dose Admin Sodium Chloride 1,000 mls @ 15 mls/hr 10/01/24 06:02 10/01/24 06:29 Sodium Chloride 0.9% IV 10/02/24 06:01 15 mls/hr .Q24H PRN Administration COLONOSCOPY FLUIDS Pertinent History/Comorbid Conditions* Medical History (Updated 09/24/24 @ 09:49 by Austin Azul DO) Hemorrhoids IBS (irritable bowel syndrome) Obesity (BMI 30-39.9) Chronic right hip pain Lump of right breast History of nephrolithiasis Asthma, mild intermittent Chronic fatigue Chronic migraine with aura History of endometriosis History of blood clots in [place];in leg--was on warfarin; reports a blood clot in uterus in past too but wasn't on anything for it; Surgical History (Updated 02/21/24 @ 09:37 by Marquita Keith MD) Hx of tonsillectomy Hx of appendectomy History of right salpingo-oophorectomy 08/24 done for cyst--benign--done through old C-sxn scar History of 3 History of appendectomy History of wisdom tooth extraction History of abdominal surgery multiple for endometriosis--exploratory and for treatment H/O: hysterectomy Hyst in her 20s for heavy bleeding, no cervical cancer Family History (Updated 06/06/22 @ 07:52 by Yesika Valentine LPN) Diabetes Father Hypercholesteremia Father Hypertension Mother Father Denies family history of Colon cancer Ovarian cancer Heart disease Breast cancer Uterine cancer Thyroid disease Stroke Social History Smoking and tobacco/nicotine status: never used tobacco/nicotine Alcohol intake: current Alcohol intake frequency: holidays/special occasions only Substance/Drug Use: never Household members: spouse and children Marital status: Number of children: 3 Highest education level completed: High School Graduate 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
--- NOTE | 2024-10-01 07:15 | PC.NURSE ---
Cecum time 0715
[2024-10-01 07:28] VITALS: BP 105/77; PULSE 109; RESP 16; TEMP 36.2; O2SAT 95
[2024-10-01 07:41] VITALS: BP 112/78; PULSE 85; RESP 16; O2SAT 100
== END 2024-10-01 07:58 | disposition home or self-care (01) ==
PROVIDERS: PCP Family Medicine; Visit Provider Surgery
PROC: 0DJD8ZZ Inspection of Lower Intestinal Tract, Via Natural or Artificial Opening Endoscopic (ICD-10-PCS; CPT 45378; principal; 2024-10-01 07:00)
DX: R19.5 Other fecal abnormalities (principal); K58.9 Irritable bowel syndrome, unspecified; K64.8 Other hemorrhoids; K64.4 Residual hemorrhoidal skin tags; E66.01 Morbid (severe) obesity due to excess calories; Z68.36 Body mass index [BMI] 36.0-36.9, adult; F41.9 Anxiety disorder, unspecified; Z79.82 Long term (current) use of aspirin; J45.20 Mild intermittent asthma, uncomplicated
CPT/HCPCS: 45380; 88305; J2704; J7030; J9999

== ENCOUNTER 2024-12-25 07:46 | Outpatient (CLI) | payer MEDICAID, SELFPAY ==
--- NOTE | 2024-12-25 08:00 | NM_ITS ---
WS: [id number] NUCLEAR MEDICINE HIDA SCAN WITH GALLBLADDER EJECTION FRACTION HISTORY: R19.8 - Other specified symptoms and signs involving the ... COMPARISON: Ultrasound 09/25/2024 TECHNIQUE: The patient was intravenously injected with 7.9 mCi of TC99m Mebrofenin. Immediate imaging over the right upper quadrant was followed by 5 minute image and additional images for a total of 60 minutes. Normal uptake of radiotracer throughout the liver. Activity identified in the gallbladder at 15 minutes and well distended by 60 minutes. Activity in the proximal small bowel was seen by 20 minutes. Good washout of the radiotracer from the liver by 60 minutes. The patient then drank 8 ounces of Ensure Plus. Ejection fraction at 60 minutes was 77%. Normal GB ejection fraction is 35-75%. Post fatty meal symptoms: None NM/NM hepatobiliary w phar* [id number] IMPRESSION: 1. Normal HIDA scan. 2. Normal gallbladder ejection fraction.
== END 2024-12-25 07:47 | disposition home or self-care (01) ==
PROVIDERS: PCP Family Medicine; Visit Provider Family Medicine
DX: R19.8 Other specified symptoms and signs involving the digestive system and abdomen (principal); R19.5 Other fecal abnormalities; R10.11 Right upper quadrant pain; R11.0 Nausea; R14.0 Abdominal distension (gaseous)
CPT/HCPCS: 78227; A9537

== ENCOUNTER 2025-03-01 09:43 | Outpatient (CLI) | payer MEDICAID, SELFPAY ==
[2025-03-01 10:24] LABS: Hematocrit 47.7 % (36-47); Hemoglobin 15.80 g/dL (11.27-16.99); Mean Corpuscular HGB Conc 33.1 g/dL (30-55); Mean Corpuscular Hemoglobin 28.6 pg (27-33); Mean Corpuscular Volume 86.3 fl (85-98); Nucleated Red Blood Cells % 0 %; Platelet Count 339 10^3/cmm (157-399); Red Blood Count 5.53 10^6/uL (3.85-5.65); White Blood Count 6.33 10^3/uL (3.29-11.43)
[2025-03-01 10:45] LABS: Alanine Aminotransferase 20 U/L (0-33); Albumin Level 4.4 g/dL (3.5-5.2); Alkaline Phosphatase 121 U/L (35-105); Anion Gap 18.1 (5-19); Aspartate Amino Transferase 19 U/L (0-32); Blood Urea Nitrogen 12 mg/dL (6-20); Calcium 9.1 mg/dL (8.5-10.5); Carbon Dioxide 22 mmol/L (22-29); Chloride 103 mmol/L (98-107); Globulin 2.8 g/dL (1.3-4.6); Glucose 104 mg/dL (65-115); Lipase 18 U/L (13-60); Osmolality Calculated 288 mOsm/kg (285-295); Potassium 4.1 mmol/L (3.5-5.1); Sodium 139 mmol/L (136-145); Total Protein 7.2 g/dL (6.6-8.7)
[2025-03-02 05:16] LABS: Amylase 24 U/L (21-101)
[2025-03-02 16:59] LABS: Beef (27) IgE <0.10 kU/L; Beef Class 0; Lamb (F88) IgE <0.10 kU/L; Lamb Class 0; Pork (F26) IgE <0.10 kU/L
== END 2025-03-01 09:44 | disposition home or self-care (01) ==
LOC: LAB 09:44
PROVIDERS: PCP Family Medicine; Visit Provider Family Medicine
DX: R19.5 Other fecal abnormalities (principal); R50.9 Fever, unspecified; R61 Generalized hyperhidrosis; R10.11 Right upper quadrant pain; R14.0 Abdominal distension (gaseous); E55.9 Vitamin D deficiency, unspecified
CPT/HCPCS: 36415; 80053; 82150; 82306; 82785; 83690; 85025; 85651; 86001; 86003; 86008; 86038; 86140; 86316